=== PATIENT | male | born 1930 | race Caucasian/White ===

== ENCOUNTER 2017-01-10 02:10 | Inpatient (IN) ==
[2017-01-10] MEDS ORDERED: Acetaminophen 325 MG TABLET PO PRN (04:42)
[2017-01-10] MEDS ORDERED: *HR* Promethazine 25 MG/ML VIAL IVP PRN (04:42)
[2017-01-10] MEDS ORDERED: Naloxone 0.4 MG/ML INJ IVP PRN (04:42)
[2017-01-10] MEDS ORDERED: Dextrose Gel 15 GM PO PRN ×2 (04:45)
[2017-01-10] MEDS ORDERED: *HR* Dextrose 50 % in Water (Syg) 50 ML SYRINGE IVP PRN (04:45)
[2017-01-10] MEDS ORDERED: D5% in Water 1,000 ML IVC PRN (04:45)
[2017-01-10] MEDS: Insulin LISPRO 300 UNITS/3 ML VIAL SQ SCH ×3 (05:25→17:35)
[2017-01-10] MEDS: *HR* Heparin 5,000 UNIT/ML VIAL SQ SCH ×2 (05:25→17:37)
--- NOTE | 2017-01-10 05:36 | Internal Med History&Physical ---
<LanKd peralta Rene - Last Filed: 01/10/17 05:33> Date of Encounter: 01/10/17 Time of Encounter: 05:35 Assessment and Plan (1) Arrhythmia Current visit: Yes Status: Acute Asymptomatic, heart rate variable between 40s and 80s EKG is not clear, but there appears to be a sinus arrhythmia with first-degree heart block. Patient has no history of arrhythmia. No chest pain or inciting event. EKG is unremarkable for ischemia. We will check electrolytes, echocardiogram. Hold AV castro blocking agents. Consult cardiology. Qualifiers: Arrhythmia type: unspecified cardiac arrhythmia Qualified Code(s): I49.9 - Cardiac arrhythmia, unspecified (2) Weakness Current visit: Yes Status: Acute Patient complains of lower extremity weakness however on exam there is no weakness appreciated. Patient was being worked up for CVA at the [facility] and had a CT scan that was negative. Patient does have some residual deficits from his old CVA but there are no new deficits. Weakness could be related to his arrhythmia, TIA, B12 deficiency. We will consult neuro for further workup. (3) CAD (coronary artery disease), [place] coronary artery Current visit: No Status: Chronic Stable at this time. No ischemic changes on EKG. We will trend troponins in light of new arrhythmia. Qualifiers: [place] vs. transplanted heart: [place] heart Associated angina: without angina Qualified Code(s): I25.10 - Atherosclerotic heart disease of [place] coronary artery without angina pectoris (4) Diabetes mellitus Current visit: No Status: Chronic Blood sugar 160 on presentation. We will hold home antidiabetic medications and institute moderate dose sliding scale. Qualifiers: Diabetes mellitus type: type 2 Diabetes mellitus complication status: with unspecified complications Diabetes mellitus terminal operations supervisor insulin use: without terminal operations supervisor use Qualified Code(s): E11.8 - Type 2 diabetes mellitus with unspecified complications (5) CKD (chronic kidney disease) stage 3, GFR 30-59 ml/min Current visit: No Status: Chronic Creatinine appears stable. We will continue to monitor urine output and serum creatinine. (6) DVT prophylaxis Current visit: No Status: Acute Heparin 5000 units subcutaneous twice a day Internal Medicine - H&P: HPI Chief complaint: Weakness Admitted From: Hospital to Hospital Transfer Plans for Post Hospital Care: Home History of present illness: Mr. Ibrahim is a 86 year old male with history of coronary artery disease, type 2 diabetes, CVA presents with arrhythmia. [facility] He was admitted there due to concerns for CVA. The patient had hypertension and was given IV labetalol and then by mouth clonidine 2 and developed an abnormal heart rhythm so he was transferred here. At the time of my exam the patient had no complaints. He did state that he felt somewhat weak in his lower extremities but otherwise stated that he feels normal. He does have some residual facial droop and slurred speech that the states developed after his previous stroke approximately a month ago and is unchanged from that time. He denies fever, chills, chest pain, syncope, lightheadedness, palpitations, shortness of breath , abdominal pain, nausea, vomiting, diarrhea, dysuria, lower extremity swelling , falls. Past Med Surg Social Fam HX - Past Medical History Medical history: arthritis, cardiomyopathy, COPD, coronary artery disease, diabetes, GI bleed, kidney stones, myocardial infarction, renal disease, other Psychiatric history: no psych history - Past Surgical History Surgical History: coronary bypass (CABG) - Social History Smoking Status: Former smoker Smokeless Tobacco Status: No Alcohol use: none Drug use: none - Additional Family History Additional family history: Patient denies any significant family history Internal Medicine - H&P: Meds glipiZIDE [Glipizide] 5 mg PO DAILY 12/06/15 [History] Aspirin [Lo-Dose Aspirin EC] 81 mg PO DAILY 01/10/17 [History] Polyvinyl Alcohol/Povidone/Pf [Refresh Classic Eye Drops] 1 drop BOTH EYES QID 01/10/17 [History] amLODIPine [Norvasc] 5 mg PO DAILY 01/10/17 [History] Allergies No Known Allergies Allergy (Verified 11/29/15 11:10) All Systems PM: A 10-system review of systems was performed and is negative for pertinent findings except as documented above in the HPI. - Constitutional Vitals: Temp Pulse Resp BP Pulse Ox 97.8 F 50 18 160/84 93 01/10/17 04:00 01/10/17 05:00 01/10/17 05:00 01/10/17 05:00 01/10/17 05:00 General appearance: Present: A&O X 3, pleasant, no acute distress - Head Head exam: Present: atraumatic, normal inspection, normocephalic - Eye Eye exam: Present: EOMI, PERRL - ENT ENT exam: Present: mucous membranes dry - Neck Neck exam general surgery: Present: supple. Absent: tenderness - Respiratory Respiratory exam: Present: CTAB. Absent: rales, rhonchi, wheezes - Cardiovascular Cardiovascular exam: Present: irregular rhythm. Absent: gallop, rubs, systolic murmur, tachycardia - GI/Abdominal GI/Abdominal exam: Present: normal bowel sounds, soft. Absent: distended, tenderness - Extremities Exam Extremities exam: Present: warm, radial pulses palpable and symetrical. Absent : pedal edema, tenderness - Neurological Exam Neurological exam: Present: alert, CN II-XII intact, oriented X3, reflexes normal, no focal deficits, strengths equal and symetr throughout, facial droop ( Mild, unchanged from previous stroke), speech deficit (Mild, unchanged from previous stroke). Absent: motor sensory deficit - Skin Skin exam: Present: dry, intact, warm Internal Med - H&P Results - EKG Data -: EKG Interpreted by Myself - EKG Data EKG comments: 01/10/17 05:42 Difficult to interpret but there appears to be sinus arrhythmia with first- degree heart block <Pilo Argueta R - Last Filed: 01/10/17 23:59> Date of Encounter: 01/10/17 Internal Medicine - H&P: HPI History of present illness: Mr. Ibrahim is a 86 year old male All Systems PM: A 10-system review of systems was performed and is negative for pertinent findings except as documented above in the HPI. - Constitutional Vitals: Temp Pulse Resp BP Pulse Ox 98.4 F 93 17 125/52 86 01/10/17 23:30 01/10/17 23:43 01/10/17 23:30 01/10/17 23:30 01/10/17 23:30 Internal Med - H&P Results - Labs CBC & Chem 7: 01/10/17 05:50 01/10/17 05:50 Labs: Short CBC 01/10/17 Range/Units 05:50 WBC 8.9 (4.3-11.1) K/mcL Hgb 14.0 (12.9-16.9) g/dL Hct 42.0 (37.5-50.1) % Plt Count 211 (140-400) K/mcL Neutrophils # 6.0 (1.6-8.9) K/mcL BMP 01/10/17 05:50 Sodium 140 Potassium 4.3 Chloride 106 Carbon Dioxide 26 BUN 13 Creatinine 1.22 Glucose 186 H Calcium 9.2 Cardiac Enzymes 01/10/17 01/10/17 01/10/17 Range/Units 05:50 11:59 18:47 Troponin I 0.13 H* 0.10 H* 0.06 H* (0-0.03) ng/mL Urine 01/10/17 Range/Units 10:30 Urine Color Yellow (Yellow) Urine Clarity Clear (Clear) Urine pH 7.0 (5.0-8.0) pH Units Ur Specific [place] 1.014 (1.010-1.025) Urine Protein Negative (Neg-Trace) mg/dL Urine Glucose (UA) Normal (Normal) mg/dL - Impressions ITS Impressions Brain MRI 01/10/17 10:11 IMPRESSION: Acute left pontine infarct. Mild generalized volume loss and mild chronic microvascular ischemic disease. The findings were sent to the Radiology Results Communication [facility] at 5:01 pm on 01/10/2017to be communicated to a licensed caregiver. D/ / 01/10/2017 17:22:09 Kendrick Silva MD / ashley Interpreting Provider: Kendrick Silva MD - Attending Attestation I performed history and physical examination of the patient and discussed management with the Resident. I reviewed the Residents note and agree with documented findings and plan of care 89 Y/M with h/o CAD s/p CABG, recent CVA presents with b/l Lower extremity weakness. Was apparently hypertensive in the ER at [facility] and was given labetolol and clonidine. He was noted to have abnormal heart rhythm [facility] 2[facility] and transferred for further care. O/E: cardiac: RRR; lungs clear to auscultation. Not in acute distress. EKG Personally reviewed shows 1 degree AV block, RBBB, sinus arrhythmia. A/P: Arrhythmia: possibly related to beta-dora effect from labetolol. Check TSH. Lower extremity weakness: Neurol consult; MRI brain
[2017-01-10 06:03] LABS: Basophils # 0.1 K/mcL (0.0-0.2); Basophils % 0.7 %; Eosinophils # 0.1 K/mcL (0.0-0.6); Eosinophils % 1.6 %; Immature Granulocytes % 0.3 % (0-4); Lymphocytes % 22.6 %; Mean Corpuscular HGB Conc 33.3 g/dL (31.6-35.5); Mean Corpuscular Hemoglobin 29.5 pg (28.0-33.3); Mean Corpuscular Volume 88.6 fL (83.0-100.0); Monocytes # 0.6 K/mcL (0.0-1.3); Platelet Count 211 K/mcL (140-400); Prothrombin Time 10.6 Seconds (9.4-12.1); Red Blood Count 4.74 M/mcL (4.19-5.50); Segmented Neutrophils % 67.8 %
[2017-01-10 06:12] LABS: BUN/Creatinine Ratio 11 (6-26); Blood Urea Nitrogen 13 mg/dL (8-26); Calcium 9.2 mg/dL (8.6-10.8); Carbon Dioxide 26 mEq/L (19-29); Chloride 106 mEq/L (98-109); Glucose 186 mg/dL (70-99); Magnesium 1.6 mg/dL (1.6-2.6); Osmolality,Calculated 295 (280-300); Phosphorous 3.8 mg/dL (2.3-4.7); Potassium 4.3 mEq/L (3.5-4.5); Sodium 140 mEq/L (136-145); eGFR For African Americans > 60 (> 60); eGFR For Non-African Americans 57 (> 60)
[2017-01-10 06:34] LABS: Thyroid Stimulating Hormone 3.359 mcIU/mL (0.350-4.840)
--- NOTE | 2017-01-10 09:11 | Internal Med Progress Note ---
Date of Encounter: 01/10/17 Time of Encounter: 09:09 - Assessment and plan (1) Arrhythmia Current Visit: Yes Status: Acute Assessment and plan: Patient sent from [place] for possible second-degree AV block. Review of EKGs show sinus arrhythmia, right bundle branch block and first-degree AV block. Cardiology consult appreciated, recommend continued telemetry monitoring, avoid negative chronotropic agents. Echocardiogram reviewed, shows preserved ejection fraction, mild concentrate left ventricular hypertrophy, mild left- ventricular diastolic dysfunction, hypokinesis of apical septum. Second troponin was slightly elevated at 0.13, repeat troponin 0.10. Continue to trend. Qualifiers: Arrhythmia type: unspecified cardiac arrhythmia Qualified Code(s): I49.9 - Cardiac arrhythmia, unspecified (2) Weakness Current Visit: Yes Status: Acute Assessment and plan: Unclear etiology. Neurology consult appreciated, recommend completing stroke workup. Follow-up MRI brain and carotid Dopplers. CT head done in the emergency room showed no acute abnormality. Patient also had a previous stroke 6 months ago with residual slurred speech and facial droop according to him. Unclear if he is having a new event with labile blood pressures and cardiac arrhythmias. Monitor closely. Physical and occupational therapy evaluation. Arterial studies show moderate occlusive disease in right lower extremity and mild disease in left lower extremity. (3) CAD (coronary artery disease) Current Visit: Yes Status: Chronic Assessment and plan: Continue telemetry monitoring and trend troponins. Continue aspirin and statin and avoid beta blockers at this time. Qualifiers: Coronary Disease-Associated Artery/Lesion type: bypass graft [place] vs. transplanted heart: [place] heart Associated angina: without angina Qualified Code(s): I25.810 - Atherosclerosis of coronary artery bypass graft(s) without angina pectoris (4) Essential hypertension Current Visit: Yes Status: Chronic Assessment and plan: Blood pressure noted to be elevated. Hold beta dora. Has been started on Norvasc, will use when necessary IV hydralazine for uncontrolled hypertension. (5) Diabetes mellitus Current Visit: Yes Status: Chronic Assessment and plan: Accu-Chek blood glucose monitoring with sliding scale insulin. Diabetic diet. Check hemoglobin A1c. Qualifiers: Diabetes mellitus type: type 2 Diabetes mellitus complication status: with unspecified complications Diabetes mellitus german tutor insulin use: without german tutor use Qualified Code(s): E11.8 - Type 2 diabetes mellitus with unspecified complications - Subjective Interval history: Reports leg weakness; no chest pain, dyspnea, abdominal pain, dizziness, nausea , emesis; had a stroke 6 months ago and has residual facial droop and slurred speech; - Constitutional Vitals: Temp Pulse Resp BP Pulse Ox 97.9 F 47 18 172/64 97 01/10/17 07:36 01/10/17 09:00 01/10/17 09:00 01/10/17 09:00 01/10/17 09:00 General appearance: Present: A&O X 3, answers questions appropriately - Respiratory Respiratory exam: Present: CTAB. Absent: accessory muscle use, rales, rhonchi, wheezes - Cardiovascular Cardiovascular exam: Present: bradycardia, irregular rhythm, +S1, +S2. Absent: diastolic murmur, gallop, rubs, systolic murmur - GI/Abdominal GI/Abdominal exam: Present: normal bowel sounds, soft, no peritoneal signs. Absent: distended, tenderness - Extremities Exam Extremities exam: Present: full ROM, warm, radial pulses palpable and symetrical. Absent: calf tenderness, cyanotic, pedal edema - Neurological Exam Neurological exam: Present: CN II-XII intact (right facial droop, slurred speech ), oriented X3, no focal deficits, strengths equal and symetr throughout (motor power 5/5 B/L LE). Absent: pronater drift, facial droop, speech deficit - Skin Skin exam: Present: dry, intact Internal Medicine: Result - Labs CBC & Chem 7: 01/10/17 05:50 01/10/17 05:50 Labs: Short CBC 01/10/17 Range/Units 05:50 WBC 8.9 (4.3-11.1) K/mcL Hgb 14.0 (12.9-16.9) g/dL Hct 42.0 (37.5-50.1) % Plt Count 211 (140-400) K/mcL Neutrophils # 6.0 (1.6-8.9) K/mcL BMP 01/10/17 05:50 Sodium 140 Potassium 4.3 Chloride 106 Carbon Dioxide 26 BUN 13 Creatinine 1.22 Glucose 186 H Calcium 9.2 Cardiac Enzymes 01/10/17 Range/Units 05:50 Troponin I 0.13 H* (0-0.03) ng/mL - ABG Interpretation ABG results: PT/INR, D-dimer PT 10.6 Seconds (9.4-12.1) 01/10/17 05:50 Consult Discharge Plan - Plan [facility]errals: [facility] [Primary Care Provider] -
--- NOTE | 2017-01-10 09:30 | Neurology - Consult Note ---
Date of Encounter: 01/10/17 Time of Encounter: 08:50 Assessment and Plan (1) Weakness Current Visit: Yes Status: Acute The patient's weakness appears to be more generalized in nature than having any focal deficits. CT of the head was read as negative at the [place]. He does continue to complain of some weakness and continues to have some slurring of his speech. Will investigate further with MRI of the head to rule out any new ischemic changes. The patient has a history of CAD with CABG after previous [place] with new arrhythmia. I believe the patient needs further cardiac workup for his weakness as well. Cardiology has already been consulted per the medicine team. Echocardiogram pending. The patient states that his symptoms have improved since their onset. Although he does still complain of feeling weak at this time. History of Present Illness Chief complaint: lower extremity weakness HPI: Mr. Ibrahim is a 86 year old male with PMH significant for arthritis, cardiomyopathy, COPD, CAD, DM, renal disease, [place] status post CABG, and CVA one month ago who presented to the [place] for bilateral lower extremity weakness. He was then transferred to [facility] after he was found to have a new dysrhythmia. Upon further questioning the patient states that his symptoms started when he initially woke up on Sunday. He states he was unable to really get up or get out of bed. He believes that if he was to try holding something in his arms, that his arms would have given out too. He admits to feeling weak all over at the onset of his symptoms, but he only really complained about the lower extremity weakness due to difficulty with standing. He was being worked up for stroke at the [place] and was found to have no acute changes on head CT, but was transferred before further workup occurred. The internal medicine team deferred having an MRI until the patient could be evaluated by neurology as they did not believe he was having an acute stroke. His EKG demonstrated sinus arrhythmia. Past Med Surg Social Fam HX - Past Medical History Medical history: arthritis, cardiomyopathy, COPD, coronary artery disease, diabetes, GI bleed, kidney stones, myocardial infarction, renal disease, other Psychiatric history: no psych history - Past Surgical History Surgical History: coronary bypass (CABG) - Social History Smoking Status: Former smoker Smokeless Tobacco Status: No Alcohol use: none Drug use: none Medications and Allergies Lisinopril [Zestril] 5 mg PO DAILY 12/06/15 [History] Metformin HCl [Glucophage] 1,000 mg PO BID 12/06/15 [History] glipiZIDE [Glipizide] 10 mg PO QPM 12/06/15 [History] Allergies No Known Allergies Allergy (Verified 11/29/15 11:10) All Systems: A 10-system review of systems was performed and is negative for pertinent findings except as documented above in the HPI. - Constitutional Constitutional ROS IM: weakness - Cardiovascular Cardiovascular ROS IM: no chest pain, no diaphoresis, no irregular heart rhythm , no palpitations, no rapid heart rate, no syncope - Respiratory Respiratory IM: no cough, no dyspnea - Gastrointestinal Gastrointestinal: no nausea, no vomiting - Neurological Neurological ROS: no dizziness, no focal weakness, no numbness, no sensory deficit Physical Examination - Vital Signs Vital Signs: Initial Vital Signs Temp Pulse Resp BP Pulse Ox 97.8 F 72 16 163/91 97 01/10/17 04:00 01/10/17 04:00 01/10/17 04:00 01/10/17 04:00 01/10/17 04:00 - Constitutional General appearance: comfortable - Neurologic Motor examination - right side: 5/5: deltoids, biceps, triceps, wrist flexion, wrist extension, manager hi, hip flexors, tibialis Anterior, quadriceps, toe extension (EHL), plantarflexion Motor examination - left side: 5/5: deltoids, biceps, triceps, wrist flexion, wrist extension, hip flexors, manager hi, quadriceps, tibialis Anterior, toe extension (EHL), plantarflexion Detailed sensory examination: intact Reflexes: Biceps: 0 (unable to elicit any reflexes), Triceps: 0, Brachioradialis : 0, Patella: 0, Achilles: 0 Mental Status Examination: awake, alert, oriented to person, oriented to place, oriented to time, follows commands appropriately, answers questions appropriately, no agnosia, no aphasia, no aproxia, makes eye contact Cranial nerve examination: PERRL, EOMI, visual mondragon intact, corneal reflexes brisk symmetrically, sensory to face intact, mastication intact, no facial asymmetry is present, no dysarthria, hearing is intact symmetrically, soft palate elevates bilaterally upon phonation, flexes SCM and trapezius muscles symmetrically with full power, tongue protrudes midline, no atrophy or facial fasiculations present Cerebellar examination: no dysmetria, performs finger to nose and heel to hercules symmetrically without ataxia, no difficulty with rapid alternating movements Results - Laboratory Findings CBC and BMP: 01/10/17 05:50 01/10/17 05:50 Abnormal lab findings: Abnormal lab results Est GFR (Non-Af Amer) 57 (> 60) L 01/10/17 05:50 Glucose 186 mg/dL (70-99) H 01/10/17 05:50 POC Glucose 162 (58-89) H 01/10/17 04:00 Troponin I 0.13 ng/mL (0-0.03) H* 01/10/17 05:50 Consult Discharge Plan - Plan [facility]errals: [facility] [Primary Care Provider] -
--- NOTE | 2017-01-10 09:53 | Cardiology Consult Note ---
Date of Encounter: 01/10/17 Time of Encounter: 09:00 Assessment and Plan (1) Bradycardia Current Visit: Yes Status: Acute Transferred from the [place] due to concerns of [place] type II. Asymptomatic--denies dizziness, dyspnea, syncope, or pre-syncope. BP stable. Reviewed telemetry and ECG's, appears to be SR with blocked PACs, with RBBB. No indication for PPM today, will continue to follow and monitor telemetry for high grade AV block. Avoid negative chronotropic agents. Will further discuss and review ECG's with Dr. Rangel. (2) Hx of CABG Current Visit: Yes Status: Chronic Hx of CABG in 2008. Troponin 0.04, 0.13 in the setting of severely elevated BP and mild REBEL (SCr. 1.47 at [place]). Blood pressure remains poorly controlled, will restart amlodipine ([facility] per [facility]). Echo pending. Denies chest pain or discomfort. (3) Essential hypertension Current Visit: Yes Status: Chronic Poorly controlled, plan as stated above. Discussion w patient/family: The assessment and plan as outlined above was discussed with the patient and/or family members who expressed understanding and agreement. All questions were answered. Thank you for involving us in the care of your patient. Please call with any questions. The patient will be discussed and reviewed with Dr. Rangel; changes to be made accordingly. History of Present Illness Consult date: 01/10/17 Requesting physician: Kd Herrera Consult reason: Abnormal ECG Chief complaint: LE weakness History of present illness: Mr. Ibrahim is a 86 year old male with PMH significant for CAD s/p CABG (2008), HTN, HLD, CVA (), DMII, GERD, hx of GI bleed (December 2015) and BPH who presented to the [place] after acute onset of bilateral lower extremity weakness that started on Sunday. Associated symptoms including difficulty speaking--he states symptoms were similar to CVA in September. Upon arrival to [place], he blood pressure had been uncontrolled requiring IV labetalol and clonodine. He denies chest pain or discomfort, dyspnea, dizziness, lightheadedness or syncope. He was transferred to [facility] due to abnormal ECG, felt to be Mob[place] II. [facility] head: no evidence of intracranial hemorrhage or mass; stable cerebral atrophy, periventricular white matter disease that likely represents secondary demyelinization from small vessel ischemic disease, and a chronic left lentiform nuclear lacunar infarct. 01/09/17 10:03 AM: troponin 0.04 Past Med Surg Social Fam HX - Past Medical History Medical history: arthritis, COPD, coronary artery disease, diabetes, GERD, GI bleed, hyperlipidemia, hypertension, kidney stones, myocardial infarction, renal disease, other (BPH) Psychiatric history: no psych history - Past Surgical History Surgical History: coronary bypass (CABG) - Social History Smoking Status: Former smoker Smokeless Tobacco Status: No Alcohol use: none Drug use: none Current living situation: Home - Independent, With Family Medications and Allergies glipiZIDE [Glipizide] 5 mg PO DAILY 12/06/15 [History] Aspirin [Lo-Dose Aspirin EC] 81 mg PO DAILY 01/10/17 [History] Polyvinyl Alcohol/Povidone/Pf [Refresh Classic Eye Drops] 1 drop BOTH EYES QID 01/10/17 [History] amLODIPine [Norvasc] 5 mg PO DAILY 01/10/17 [History] Allergies No Known Allergies Allergy (Verified 11/29/15 11:10) All Systems Review: A 10-system review of systems was performed and is negative for pertinent findings except as documented above in the HPI. - Cardiovascular Cardiovascular: as per HPI Physical Examination Vital Signs, Last 4 Hours Temp Pulse Resp BP Pulse Ox 01/10/17 09:00 47 18 172/64 97 01/10/17 07:36 97.9 F 01/10/17 07:24 44 01/10/17 07:18 44 16 127/52 96 01/10/17 06:00 60 21 141/69 95 General: Conversant, No Apparent Distress HEENT: Atraumatic, Normocephaly Cardiac: Reg Rate and Rhythm, Normal S1 and S2 Lungs: Normal Breath Sounds Neuro: Alert and responsive, No focal deficits noted Abdomen: Soft Skin: No rashes noted on visualized skin Musculoskeletal: No Chest Wall Tenderness Extremities: No Edema, Normal Pulses Results 01/10/17 05:50 01/10/17 05:50 Lab Results 01/10/17 01/10/17 01/10/17 05:50 05:50 05:50 WBC 8.9 Hgb 14.0 Hct 42.0 Plt Count 211 INR 1.0 Sodium 140 Potassium 4.3 Chloride 106 Carbon Dioxide 26 BUN 13 Creatinine 1.22 Glucose 186 H Calcium 9.2 Magnesium 1.6 Troponin I TSH 3.359 01/10/17 05:50 WBC Hgb Hct Plt Count INR Sodium Potassium Chloride Carbon Dioxide BUN Creatinine Glucose Calcium Magnesium Troponin I 0.13 H* TSH Active Medications Acetaminophen (Tylenol) 650 mg PO Q6HR PRN PRN Reason: Mild Pain (1-3) Stop: 07/12/17 04:43 Dextrose/Water (Dextrose 50% (Syg)) 25 ml IVP AD PRN PRN Reason: Hypoglycemia Stop: 07/12/17 04:46 Glucagon (Glucagen) 1 mg IM ONCE PRN PRN Reason: Hypoglycemia Stop: 07/12/17 04:46 Glucose (Gluctose) 15 gm PO ONCE PRN PRN Reason: Hypoglycemia Stop: 07/12/17 04:46 Glucose (Gluctose) 30 gm PO ONCE PRN PRN Reason: Hypoglycemia Stop: 07/12/17 04:46 Heparin Sodium (Porcine) (Heparin) 5,000 unit SQ Q12HCO [facility] Stop: 07/12/17 06:01 Last Admin: 01/10/17 05:25 Dose: 5,000 unit Hydralazine HCl (Hydralazine) 10 mg IVP Q6HR PRN PRN Reason: Hypertension Stop: 07/12/17 05:56 Last Admin: 01/10/17 09:37 Dose: 10 mg Dextrose (Dextrose 5%) 1,000 mls @ 100 mls/hr IVC .Q10H PRN PRN Reason: HYPOGLYCEMIA Stop: 07/12/17 04:46 Insulin Human Lispro (Humalog) 0 units SQ Q6HR [facility] PRN Reason: Protocol Stop: 07/12/17 06:01 Last Admin: 01/10/17 05:25 Dose: 2 units Naloxone HCl (Narcan) 0.4 mg IVP Q2MIN PRN PRN Reason: Opioid Reversal Stop: 07/12/17 04:43 Promethazine HCl (Phenergan) 12.5 mg IVP Q6HR PRN PRN Reason: Nausea And Vomiting Stop: 07/12/17 04:43 - Imaging and Cardiology Echo: pending Other Results: 12 hour tele: avg HR=62. - EKG Interpretation EKG results cardiology: personally reviewed Consult Discharge Plan - Plan [facility]errals: [facility] [Primary Care Provider] -
[2017-01-10 11:03] LABS: Bilirubin,Urine Negative (Negative); Blood,Urine Negative (Negative); Clarity,Urine Clear (Clear); Color,Urine Yellow (Yellow); Glucose,Urine (UA) Normal (Normal); Ketones,Urine Negative (Negative); Leukocyte Esterase,Urine Negative (Negative); Nitrite,Urine Negative (Negative); Protein,Urine Negative (Neg-Trace); Specific Gravity,Urine 1.014 (1.010-1.025); Urobilinogen,Urine Normal (Normal)
[2017-01-10] MEDS: amLODIPine 5 MG TABLET PO SCH (12:10)
--- NOTE | 2017-01-10 14:59 | Arterial Study Report ---
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 2) Right Ankle Brachial Index demonstrates moderately occlusive disease. 1) Left lower extremity waveform demonstrates mildly diminished hemodynamics. 2) Left Ankle Brachial Index is normal. Recommendations: Test completed on 01/10/2017 at 2:30:00 pm. Findings LE Arterial Physiologic Exam: Segmental Pressures: Right: The right posterior tibial pressure is 138 mmHg with an index of 0.74. The right dorsalis pedis pressure is 135 mmHg with an index of 0.72. Left: The left posterior tibial pressure is 184 mmHg with an index of 0.98. The left dorsalis pedis pressure is 178 mmHg with an index of 0.95. PVR: Right: The PVR waveforms are mildly diminished in the right ankle. Left: The PVR waveforms are mildly diminished in the left ankle. Prior Study: No prior study available for comparison. Segmental Pressures Side Location Pressure Index Result Right Posterior Tibial 138 0.74 Moderately Diminished Right Dorsalis Pedis 135 0.72 Moderately Diminished Left Posterior Tibial 184 0.98 Normal Left Dorsalis Pedis 178 0.95 Normal Ankle Brachial Index Right Systolic Diastolic SYLWIA Brachial 180 0.74 Dorsalis Pedis 135 0.72 Posterior Tibial 138 0.74 Left Systolic Diastolic SYLWIA Brachial 187 0.98 Dorsalis Pedis 178 0.95 Posterior Tibial 184 0.98 Updated by Rusty Cantu MD on 01/10/2017 2:53:44 PM with Status of Final electronically signed on 01/10/2017 2:54:00 PM with status of Final
--- NOTE | 2017-01-10 15:54 | Electrocardiograph Report ---
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
[2017-01-10] MEDS: Aspirin Enteric Coated 81 MG Tablet PO SCH (17:47)
--- NOTE | 2017-01-10 18:44 | Neurology Progress Note ---
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 Agree with addition of plavix onto aspirin to secondary stroke prevention. Will obtain echocardiography and carotid artery duplex if not already done. Continue statin therapy. Speech therapy, and PT/OT Qualifiers: CVA mechanism: occlusion Precerebral and cerebral artery: unspecified precerebral artery Qualified Code(s): I63.20 - Cerebral infarction due to unspecified occlusion or stenosis of unspecified precerebral arteries Subjective Principal diagnosis: CVA Interval history: Patient seen and examined. Patient is currently out of ICU. MRI of brain showed acute left pontine infarct which explains his slurred speech. Objective - Constitutional Vitals: Temp Pulse Resp BP Pulse Ox 98.0 F 77 20 161/77 95 01/10/17 14:58 01/10/17 15:00 01/10/17 15:00 01/10/17 15:00 01/10/17 15:00 - Neurological Exam Sensorimotor examination: Present: intact Motor Examination: Present: grossly full strength in all extremities Motor examination - right side: 5/5: triceps, wrist flexion, wrist extension, commercial marketing specialist, hip flexors, tibialis Anterior, quadriceps, toe extension (EHL), plantarflexion Motor examination - left side: 5/5: deltoids, biceps, triceps, wrist flexion, wrist extension, hip flexors, commercial marketing specialist, quadriceps, tibialis Anterior, toe extension (EHL), plantarflexion Sensation intact: Present: intact Posture: Present: other (None) Reflex and gait examination: other (Gait not assessed) Reflexes: Biceps: 1+, Triceps: 1+, Brachioradialis: 1+, Patella: 1+, Achilles: 1 + Mental Status Examination: Present: awake (Patient is dysarthric, language content is intact), alert, oriented to person, oriented to place, oriented to time, follows commands appropriately, answers questions appropriately, no agnosia, no aphasia, no aproxia, lucid Cranial nerve examination: Present: PERRL, EOMI, visual mondragon intact, corneal reflexes brisk symmetrically, sensory to face intact, mastication intact, no facial asymmetry is present, no dysarthria, hearing is intact symmetrically, soft palate elevates bilaterally upon phonation, flexes SCM and trapezius muscles symmetrically with full power, tongue protrudes midline, no atrophy or facial fasiculations present Cerebellar examination: Present: no dysmetria, performs finger to nose and heel to hercules symmetrically without ataxia, no difficulty with rapid alternating movements Results - Laboratory Findings CBC and BMP: 01/10/17 05:50 01/10/17 05:50 Abnormal lab findings: Abnormal lab results Est GFR (Non-Af Amer) 57 (> 60) L 01/10/17 05:50 Glucose 186 mg/dL (70-99) H 01/10/17 05:50 POC Glucose 139 (58-89) H 01/10/17 12:10 Troponin I 0.10 ng/mL (0-0.03) H* 01/10/17 11:59 Consult Discharge Plan - Plan [facility]: [facility] Care Provider[facility] -
[2017-01-11 05:44] LABS: Hemoglobin A1C 8.1 %
[2017-01-11 05:57] LABS: BUN/Creatinine Ratio 10 (6-26); Blood Urea Nitrogen 14 mg/dL (8-26); Calcium 9.5 mg/dL (8.6-10.8); Carbon Dioxide 24 mEq/L (19-29); Chloride 106 mEq/L (98-109); Chol/HDL Ratio 5.7 (0-4.9); Cholesterol 177 mg/dL (< 200); Glucose 162 mg/dL (70-99); HDL Cholesterol 31 mg/dL (40-59); LDL Cholesterol,Calculated 101 mg/dL (0-99); Osmolality,Calculated 288 (280-300); Potassium 3.9 mEq/L (3.5-4.5); Sodium 137 mEq/L (136-145); Triglycerides 223 mg/dL (< 150); eGFR For African Americans > 60 (> 60); eGFR For Non-African Americans 51 (> 60)
[2017-01-11] MEDS: *HR* Heparin 5,000 UNIT/ML VIAL SQ SCH ×2 (06:14→17:56)
[2017-01-11] MEDS: amLODIPine 5 MG TABLET PO SCH (08:04)
[2017-01-11] MEDS: Aspirin Enteric Coated 81 MG Tablet PO SCH (08:04)
[2017-01-11] MEDS: Insulin LISPRO 300 UNITS/3 ML VIAL SQ SCH ×3 (08:04→16:15)
--- NOTE | 2017-01-11 09:34 | Neurology Progress Note ---
Date of Encounter: 01/11/17 Time of Encounter: 09:00 Assessment and Plan (1) CVA (cerebral vascular accident) Current Visit: Yes Status: Acute The patient's dysarthria remains unchanged from yesterday. MRI demonstrated an acute left pontine lacunar infarct. Carotid duplex US ordered. Continue ASA and Plavix. His lower extremity weakness likely multifactorial with component of PVD. Lower extremity arterial physiologic study demonstrated: RLE waveform moderately diminished hemodynamics and right SYLWIA demonstrates moderate occlusive disease. LLE waveform has mildly diminished hemodynamis and normal SYLWIA. Echocardiogram demonstrated: LVEF of 60-65% with hypokinesis of apical septum, mild concentric LVH, and mild LV diastoic dysfunction. Follow recommendations of PT/OT. Qualifiers: CVA mechanism: occlusion Precerebral and cerebral artery: unspecified precerebral artery Qualified Code(s): I63.20 - Cerebral infarction due to unspecified occlusion or stenosis of unspecified precerebral arteries Subjective Principal diagnosis: CVA Interval history: The patient remains alert and oriented with no acute neurologic changes since yesterday. He is currently asking when he will be able to go home. He reports that he feels better today than yesterday in terms of his feelings of weakness as well as his speech. His MRI yesterday did demonstrate an acute left pontine lacunar infarct. Objective - Constitutional Vitals: Temp Pulse Resp BP Pulse Ox 97.9 F 83 20 180/89 95 01/11/17 08:00 01/11/17 08:00 01/11/17 08:00 01/11/17 08:00 01/11/17 08:00 General appearance: Present: A&O X 3, pleasant, no acute distress - Neurological Exam Sensorimotor examination: Present: intact Motor Examination: Present: grossly full strength in all extremities Motor examination - right side: 5/5: deltoids, biceps, triceps, wrist flexion, wrist extension, real estate subagent, hip flexors, tibialis Anterior, quadriceps, toe extension (EHL), plantarflexion Motor examination - left side: 5/5: deltoids, biceps, triceps, wrist flexion, wrist extension, hip flexors, real estate subagent, quadriceps, tibialis Anterior, toe extension (EHL), plantarflexion Sensation intact: Present: intact Reflex and gait examination: other (Gait not assessed) Mental Status Examination: Present: awake (Patient is dysarthric, language content is intact), alert, oriented to person, oriented to place, oriented to time, follows commands appropriately, answers questions appropriately, no agnosia, no aphasia, no aproxia, lucid Cranial nerve examination: Present: PERRL, EOMI, visual mondragon intact, corneal reflexes brisk symmetrically, sensory to face intact, mastication intact, no facial asymmetry is present, no dysarthria, hearing is intact symmetrically, soft palate elevates bilaterally upon phonation, flexes SCM and trapezius muscles symmetrically with full power, tongue protrudes midline, no atrophy or facial fasiculations present Cerebellar examination: Present: no dysmetria, performs finger to nose and heel to hercules symmetrically without ataxia, no difficulty with rapid alternating movements Results - Laboratory Findings CBC and BMP: 01/10/17 05:50 01/11/17 05:06 Abnormal lab findings: Abnormal lab results Creatinine 1.34 mg/dL (0.72-1.25) H 01/11/17 05:06 Est GFR (Non-Af Amer) 51 (> 60) L 01/11/17 05:06 Glucose 162 mg/dL (70-99) H 01/11/17 05:06 POC Glucose 160 (58-89) H 01/10/17 20:28 Hemoglobin A1c 8.1 % (-5.6) H 01/11/17 05:06 Troponin I 0.06 ng/mL (0-0.03) H* 01/10/17 18:47 Triglycerides 223 mg/dL (< 150) H 01/11/17 05:06 LDL Cholesterol, Calc 101 mg/dL (0-99) H 01/11/17 05:06 VLDL Cholesterol, Calc 45 mg/dL (< 31) H 01/11/17 05:06 HDL Cholesterol 31 mg/dL (40-59) L 01/11/17 05:06 Cholesterol/HDL Ratio 5.7 (0-4.9) H 01/11/17 05:06 Consult Discharge Plan - Plan [facility]errals: [facility] [Primary Care Provider] -
--- NOTE | 2017-01-11 10:14 | Cardiology Progress Note ---
Date of Encounter: 01/11/17 Time of Encounter: 10:00 Assessment and Plan (1) Bradycardia Current Visit: Yes Status: Acute Transferred from the [place] due to concerns of [place] type II in the setting of acute CVA. Asymptomatic--denies dizziness, dyspnea, syncope, or pre-syncope. BP stable. 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 Min HR=low 40's upon presentation. No indication for PPM. Avoid negative chronotropic agents. Telemetry reviewed; avg HR overnight= 79, SR with blocked PACs. Recommend outpatient follow-up with [facility]. (2) Hx of CABG Current Visit: Yes Status: Chronic Hx of CABG in 2008. Mild troponin elevation, 0.04, 0.13, 0.10, 0.06 in the setting of severely elevated BP, acute CVA, and mild REBEL (SCr. 1.47 at [place]). No ischemic ECG changes, chest pain free. No indication for cardiac rehab. TTE: EF 60-65%, hypokinesis of the apical septum, mild cLVH, no significant valvular dysfunction. Continue medical therapy including asa, statin, and plavix. No betablocker due to bradycardia. (3) Essential hypertension Current Visit: Yes Status: Chronic Continues to be uncontrolled, will increase norvasc to 10 mg daily. (4) PVD (peripheral vascular disease) Current Visit: Yes Status: Chronic Bilateral lower extremity weakness improved. LE arterial study: RLE: moderately diminished hemodynamics, right SYLWIA moderate occlusive disease LLE: mildly diminished hemodynamics, left SYLWIA normal exam. Started on asa and plavix. Continue statin. Outpatient follow-up. Discussion w patient/family: The assessment and plan as outlined above was discussed with the patient and/or family members who expressed understanding and agreement. All questions were answered. Thank you for involving us in the care of your patient. Please call with any questions. The patient will be discussed and reviewed with Dr. Rangel; changes to be made accordingly. Subjective Principal diagnosis: CVA Interval history: Seen and examined. Patient up to bedside chair. No complaints overnight including dizziness, lightheadedness, weakness, or dyspnea. Denies chest pain or discomfort. States BLE weakness improving. Brain MRI 01/10/17: acute left pontine infarct--Neurology following, started on asa and plavix. Objective Vital Signs, Last 4 Hours Temp Pulse Resp BP Pulse Ox 01/11/17 09:30 97.9 F 83 20 180/89 95 01/11/17 08:00 97.9 F 83 20 180/89 95 01/11/17 07:39 97.9 F 83 20 180/89 General: Conversant, No Apparent Distress HEENT: Atraumatic, Normocephaly, Mucus Membranes Moist Neck: No JVD Cardiac: Reg Rate and Rhythm, Normal S1 and S2 Lungs: Normal Breath Sounds Neuro: Alert and responsive Abdomen: Soft Skin: No rashes noted on visualized skin Musculoskeletal: No Chest Wall Tenderness Extremities: No Edema, Normal Pulses Results 01/10/17 05:50 01/11/17 05:06 Lab Results 01/10/17 01/10/17 01/11/17 11:59 18:47 05:06 Sodium 137 Potassium 3.9 Chloride 106 Carbon Dioxide 24 BUN 14 Creatinine 1.34 H Glucose 162 H Calcium 9.5 Troponin I 0.10 H* 0.06 H* Active Medications Acetaminophen (Tylenol) 650 mg PO Q6HR PRN PRN Reason: Mild Pain (1-3) Stop: 07/12/17 04:43 Amlodipine Besylate (Norvasc) 5 mg PO DAILY [facility] PRN Reason: Protocol Stop: 07/12/17 11:31 Last Admin: 01/11/17 08:04 Dose: 5 mg Aspirin (Aspirin Ec) 81 mg PO DAILY [facility] Stop: 07/12/17 17:31 Last Admin: 01/11/17 08:04 Dose: 81 mg Atorvastatin Calcium (Lipitor) 40 mg PO HS [facility] Stop: 07/12/17 21:01 Last Admin: 01/10/17 20:20 Dose: 40 mg Clopidogrel Bisulfate (Plavix) 75 mg PO DAILY [facility] Stop: 07/12/17 17:31 Last Admin: 01/11/17 08:04 Dose: 75 mg Dextrose/Water (Dextrose 50% (Syg)) 25 ml IVP AD PRN PRN Reason: Hypoglycemia Stop: 07/12/17 04:46 Glucagon (Glucagen) 1 mg IM ONCE PRN PRN Reason: Hypoglycemia Stop: 07/12/17 04:46 Glucose (Gluctose) 15 gm PO ONCE PRN PRN Reason: Hypoglycemia Stop: 07/12/17 04:46 Glucose (Gluctose) 30 gm PO ONCE PRN PRN Reason: Hypoglycemia Stop: 07/12/17 04:46 Heparin Sodium (Porcine) (Heparin) 5,000 unit SQ Q12HCO [facility] Stop: 07/12/17 06:01 Last Admin: 01/11/17 06:14 Dose: 5,000 unit Hydralazine HCl (Hydralazine) 10 mg IVP Q6HR PRN PRN Reason: Hypertension Stop: 07/12/17 05:56 Last Admin: 01/10/17 09:37 Dose: 10 mg Dextrose (Dextrose 5%) 1,000 mls @ 100 mls/hr IVC .Q10H PRN PRN Reason: HYPOGLYCEMIA Stop: 07/12/17 04:46 Insulin Human Lispro (Humalog) 0 units SQ TIDAC [facility] PRN Reason: Protocol Stop: 07/13/17 07:31 Last Admin: 01/11/17 08:04 Dose: 2 units Insulin Human Lispro (Humalog) 0 units SQ HS [facility] PRN Reason: Protocol Stop: 07/13/17 21:01 Naloxone HCl (Narcan) 0.4 mg IVP Q2MIN PRN PRN Reason: Opioid Reversal Stop: 07/12/17 04:43 Promethazine HCl (Phenergan) 12.5 mg IVP Q6HR PRN PRN Reason: Nausea And Vomiting Stop: 07/12/17 04:43 - Imaging and Cardiology Echo: report reviewed Other Results: Tele: avg HR=79 SR. - EKG Interpretation EKG results cardiology: personally reviewed Consult Discharge Plan - Plan [facility]errals: [facility] [Primary Care Provider] -
[2017-01-11] MEDS ORDERED: amLODIPine 5 MG TABLET PO ONE (10:30)
--- NOTE | 2017-01-11 15:54 | Internal Med Progress Note ---
Date of Encounter: 01/11/17 Time of Encounter: 15:00 - Assessment and plan (1) CVA (cerebral vascular accident) Current Visit: Yes Status: Acute Assessment and plan: Neurology consult and follow-up appreciated, agree with current management. MRI brain reviewed, shows new left pontine infarct. Pending bilateral carotid Doppler. Patient's fluctuating blood pressure and cardiac arrhythmias could be explained by pontine infarct per neurology. Continue aspirin and Plavix and statin. Aggressive risk factor modification- noted to have elevated TGs, LDL- 101, has been started on statin. Physical therapy evaluation noted, recommend inpatient rehabilitation, to which the patient is agreeable. Case has been discussed with patient's provider at the [place], , and updated about his new diagnosis and ongoing treatments. He may be transferred to [place] inpatient rehabilitation in a.m. Qualifiers: CVA mechanism: occlusion Precerebral and cerebral artery: unspecified precerebral artery Qualified Code(s): I63.20 - Cerebral infarction due to unspecified occlusion or stenosis of unspecified precerebral arteries (2) Arrhythmia Current Visit: Yes Status: Acute Assessment and plan: Review of EKGs show sinus arrhythmia, right bundle branch block and first- degree AV block. Cardiology follow-up appreciated, no indication for pacemaker placement at this time, recommend outpatient follow-up. Continue to hold negative chronotropic agents, bradycardia is currently improved. Qualifiers: Arrhythmia type: unspecified cardiac arrhythmia Qualified Code(s): I49.9 - Cardiac arrhythmia, unspecified (3) Weakness Current Visit: Yes Status: Acute (4) CAD (coronary artery disease) Current Visit: Yes Status: Chronic Assessment and plan: Continue telemetry monitoring. Continue aspirin and statin and avoid beta blockers at this time. Qualifiers: Coronary Disease-Associated Artery/Lesion type: bypass graft [place] vs. transplanted heart: [place] heart Associated angina: without angina Qualified Code(s): I25.810 - Atherosclerosis of coronary artery bypass graft(s) without angina pectoris (5) Essential hypertension Current Visit: Yes Status: Chronic Assessment and plan: Blood pressure noted to be fluctuating with episodes of high blood pressure. Continue low-dose Norvasc and hold beta dora. For neurology, blood pressure changes could be related to the new pontine infarct, will avoid aggressive blood pressure control at this time. (6) Diabetes mellitus Current Visit: Yes Status: Chronic Assessment and plan: Accu-Chek blood glucose monitoring with sliding scale insulin. Diabetic diet. HbA1C noted to be 8.1% Qualifiers: Diabetes mellitus type: type 2 Diabetes mellitus complication status: with unspecified complications Diabetes mellitus longterm insulin use: without longterm use Qualified Code(s): E11.8 - Type 2 diabetes mellitus with unspecified complications - Subjective Interval history: Reports feeling well today. Denies chest pain, shortness of breath, dizziness or syncope. Improving leg weakness. - Constitutional Vitals: Temp Pulse Resp BP Pulse Ox 98 F 68 16 163/93 96 01/11/17 15:39 01/11/17 15:39 01/11/17 15:39 01/11/17 15:39 01/11/17 15:39 General appearance: Present: A&O X 3, answers questions appropriately - Respiratory Respiratory exam: Present: CTAB (Anterolaterally). Absent: accessory muscle use , rales, rhonchi, wheezes - Cardiovascular Cardiovascular exam: Present: RRR, +S1, +S2. Absent: diastolic murmur, gallop, rubs, systolic murmur - GI/Abdominal GI/Abdominal exam: Present: normal bowel sounds, soft, no peritoneal signs. Absent: distended, tenderness - Extremities Exam Extremities exam: Present: full ROM, warm, radial pulses palpable and symetrical. Absent: calf tenderness, cyanotic, pedal edema Internal Medicine: Result - Labs CBC & Chem 7: 01/10/17 05:50 01/11/17 05:06 Labs: BMP 01/11/17 05:06 Sodium 137 Potassium 3.9 Chloride 106 Carbon Dioxide 24 BUN 14 Creatinine 1.34 H Glucose 162 H Calcium 9.5 Cardiac Enzymes 01/10/17 Range/Units 18:47 Troponin I 0.06 H* (0-0.03) ng/mL - ABG Interpretation ABG results: PT/INR, D-dimer PT 10.6 Seconds (9.4-12.1) 01/10/17 05:50 - Impressions Impressions Brain MRI 01/10/17 10:11 IMPRESSION: Acute left pontine infarct. Mild generalized volume loss and mild chronic microvascular ischemic disease. The findings were sent to the Radiology Results Communication Center at 5:01 pm on 01/10/2017to be communicated to a licensed caregiver. D/ /10/2017 17:22:09 Kendrick Silva MD / ashley Interpreting Provider: Kendrick Silva MD Consult Discharge Plan - Plan Referrals: [facility], SENIOR INSTRUCTIONAL DESIGNER [Advanced Practice Nurse] - (WAITING ON APPROVAL FROM [place] ) [place],PC[place] [Primary Care Provider] - 01/19/17 1:30 pm
[2017-01-11] MEDS ORDERED: Insulin LISPRO 300 UNITS/3 ML VIAL SQ SCH (21:00)
[2017-01-12] MEDS: *HR* Heparin 5,000 UNIT/ML VIAL SQ SCH (05:15)
[2017-01-12] MEDS: hydrALAZINE 25 MG TABLET PO SCH ×2 (08:34→15:18)
[2017-01-12] MEDS: Aspirin Enteric Coated 81 MG Tablet PO SCH (08:34)
[2017-01-12] MEDS: Insulin LISPRO 300 UNITS/3 ML VIAL SQ SCH ×2 (08:37→11:32)
[2017-01-12] MEDS ORDERED: amLODIPine 5 MG TABLET PO SCH (09:00)
[2017-01-12 11:22] VITALS: BP 185/76
--- NOTE | 2017-01-12 13:15 | Discharge Summary ---
Date of Encounter: 01/12/17 Time of Encounter: 09:30 - Discharge Diagnosis (1) CVA (cerebral vascular accident) Priority: Primary Status: Acute Qualifiers: CVA mechanism: occlusion Precerebral and cerebral artery: unspecified precerebral artery Qualified Code(s): I63.20 - Cerebral infarction due to unspecified occlusion or stenosis of unspecified precerebral arteries (2) Arrhythmia Priority: Primary Status: Acute Qualifiers: Arrhythmia type: unspecified cardiac arrhythmia Qualified Code(s): I49.9 - Cardiac arrhythmia, unspecified (3) Weakness Priority: Primary Status: Acute (4) CAD (coronary artery disease) Priority: Secondary Status: Chronic Qualifiers: Coronary Disease-Associated Artery/Lesion type: bypass graft [place] vs. transplanted heart: [place] heart Associated angina: without angina Qualified Code(s): I25.810 - Atherosclerosis of coronary artery bypass graft(s) without angina pectoris (5) Essential hypertension Priority: Secondary Status: Chronic (6) Diabetes mellitus Priority: Secondary Status: Chronic Qualifiers: Diabetes mellitus type: type 2 Diabetes mellitus complication status: with unspecified complications Diabetes mellitus terminal gauger insulin use: without terminal gauger use Qualified Code(s): E11.8 - Type 2 diabetes mellitus with unspecified complications - Discharge Medications Prescriptions: hydrALAZINE [HydrALAZINE] 25 mg PO Q8HR #90 tablet amLODIPine [Norvasc] 10 mg PO DAILY #60 tablet Atorvastatin [Lipitor] 40 mg PO HS #30 tablet Clopidogrel [Plavix] 75 mg PO DAILY #30 tablet Home Medications: glipiZIDE [Glipizide] 5 mg PO DAILY 12/06/15 [History] Aspirin [Lo-Dose Aspirin EC] 81 mg PO DAILY 01/10/17 [History] Polyvinyl Alcohol/Povidone/Pf [Refresh Classic Eye Drops] 1 drop BOTH EYES QID 01/10/17 [History] Atorvastatin [Lipitor] 40 mg PO HS #30 tablet 01/12/17 [Rx] Clopidogrel [Plavix] 75 mg PO DAILY #30 tablet 01/12/17 [Rx] amLODIPine [Norvasc] 10 mg PO DAILY #60 tablet 01/12/17 [Rx] hydrALAZINE [HydrALAZINE] 25 mg PO Q8HR #90 tablet 01/12/17 [Rx] Allergies/Adverse Reactions: Allergies No Known Allergies Allergy (Verified 11/29/15 11:10) Procedures/tests Complete & Pending: Procedures Performed prior 72 hours Category Date Time Status MR head/brain wo con [MR] Routine MRI 01/10/17 10:11 Completed SYLWIA [EV ankle brachial index] Routine Y 01/10/17 12:18 Completed ECG 12 lead ECG [ECG] Routine Y 01/10/17 04:17 Completed EV carotid duplex imaging BI Stat Y 01/11/17 09:29 Completed EV echocardiogram Routine Y 01/10/17 04:44 Completed Date of admission: 01/10/17 03:37 Primary care physician: PCP [place] Consults: 01/10/17 05:34 Consult to Cardiology [CONS] Routine Comment: Consulting Provider: Card[facility] Reason for Consult: Arrhythmia Call Completed: Yes Consult to Neurology [CONS] Routine Consulting Provider: Neurology [facility] Reason for Consult: lower extremity weakness Call Completed: Yes Consult to Occupational Therapy [CONS] Routine Comment: Evaluate, develop and implement POC Reason for Consult: Weakness/hx of CVA Consult to Physical Therapy [CONS] Routine Comment: Evaluate, develop and implement POC Reason for Consult: Weakness/hx of CVA Discharging clinician: Yvette Zheng Anticipated date of discharge: 01/12/17 - Patient Status Disposition: Home, Self-Care Condition: Fair Functional capacity at discharge: uses cane/walker Overall status at discharge: patient is progressing back to baseline - Discharge Instructions Instructions: Hydralazine (By mouth), Amlodipine (By mouth), Atorvastatin (By mouth), Clopidogrel (By mouth), Ischemic Stroke (DC), Chronic Hypertension (DC) , Self Care Measures After a Stroke (DC) Follow Up With: [facility], DOCUMENTATION MANAGER [Advanced Practice Nurse] - (WAITING ON APPROVAL FROM ME ) [facility],PCP [Primary Care Provider] - 01/19/17 1:30 pm - Diet and Activity Activity: as per physical therapy, increase activity as tolerated Diet: diabetic diet, low fat, low cholesterol, low salt diet Hospital course: Mr. Ibrahim is a 86 year old male with the above medical problems, who was sent from [place] for evaluation of bradycardia, possible second degree heart block and leg weakness. Patient was monitored on telemetry, cardiology was consulted. After reviewing previous EKGs and telemetry strips, patient was noted to have sinus arrhythmia, first-degree AV block with PACs. His heart rate gradually improved but he is noted to have significant conduction disease and per cardiology, to avoid negative chronotropic agents for now. He was also noted to have labile blood pressure, often with systolic blood pressure in 180s, and he started on hydralazine along with Norvasc with appropriate blood pressure control. Neurology was consulted for subjective bilateral lower extremity weakness and stroke workup was recommended. 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 He was noted to be on baby aspirin to which Plavix and statin was added. Lipid profile shows elevated triglycerides and slightly elevated LDL cholesterol and patient was explained about lifestyle modifications. Bilateral carotid Doppler showed nonstenotic plaque. Echocardiogram showed preserved ejection fraction, mild concentrate LVH, mild left ventricular diastolic dysfunction, mild hypokinesis of apical septum. Per neurology, pontine infarcts can sometimes cause cardiac dysrhythmias and labile blood pressures. Physical therapy evaluation was completed, recommended inpatient rehabilitation , which the patient declined. He also refuses home health services. He is being discharged with referral to outpatient physical therapy, which would be arranged by the [facility]. He is otherwise medically stable for discharge. - Time Spent with Patient Total time spent providing and/or coordinating discharge services: Greater than 30 minutes (50 min) - Constitutional Vitals: Temp Pulse Resp BP Pulse Ox 97.4 F L 90 18 185/76 95 01/12/17 11:20 01/12/17 11:20 01/12/17 11:20 01/12/17 11:20 01/12/17 04:37 General appearance: Present: A&O X 3, answers questions appropriately - Respiratory Respiratory exam: Present: CTAB. Absent: accessory muscle use, rales, rhonchi, wheezes - Cardiovascular Cardiovascular exam: Present: RRR, +S1, +S2. Absent: diastolic murmur, gallop, rubs, systolic murmur
--- NOTE | 2017-01-13 09:31 | Carotid Imaging Report ---
Carotid Duplex Patient Name:Isabel Ibrahim Order Number:[id number] Procedure Date:01/11/2017 Date:1930ge:86 yrs Gender:Male Lt BP:160 / 99 mmHg Rt.BP:165 / 108 mmHgHeart Rate: Location:[facility] Room #: 2N12 Information Technology Officer:Suzanne Patel, AGA, RVT Referring MD:Alexei Mccain DO curing press operator:[facility] Reading MD:Rusty Cantu MD Primary Indications:Left [place] Lacunar Infarct Risk Factors Yes/No Diabetes Yes Hypertension Yes Hypercholesterolemia No Hx of CVA Yes Smoker Previous Yes Impressions: Findings: Bilateral carotid system has nonstenotic plaque. Recommendations: After imaging the patient returned to their room. Findings Carotid Duplex: Right: There is nonstenotic plaque in the right mid common carotid artery. There is smooth homogeneous plaque. There is nonstenotic plaque in the right bifurcation. There is smooth heterogeneous plaque. The right eca has turbulent flow with plaque. There is smooth homogeneous plaque. There is antegrade spectral Doppler flow patterns in the right vertebral artery. Left: There is nonstenotic plaque in the left bifurcation. There is irregular heterogeneous plaque. There is nonstenotic plaque in the left proximal internal carotid artery. There is smooth homogeneous plaque. The left eca has turbulent flow with plaque. There is smooth heterogeneous plaque. There is antegrade spectral Doppler flow patterns in the left vertebral artery. Prior Study: No prior study available for comparison. Carotid Results Right PSV EDV Assessment Proximal CCA 45 8 Normal Mid CCA 45 12 Non Stenotic Plaque Distal CCA 44 7 Normal Bifurcation 41 9 Non Stenotic Plaque Proximal ICA 47 13 Normal Mid ICA 30 8 Normal Distal ICA 49 10 Normal ECA 138 Turbulent Flow Vertebral Artery 39 9 Antegrade Flow Left PSV EDV Assessment Proximal CCA 88 12 Normal Mid CCA 70 11 Normal Distal CCA 38 9 Normal Bifurcation 44 6 Non Stenotic Plaque Proximal ICA 47 13 Non Stenotic Plaque Mid ICA 74 15 Normal Distal ICA 58 13 Normal ECA 112 7 Turbulent Flow Vertebral Artery 38 13 Antegrade Flow Ratio's Right ICA/CCA Ratio: 1.09 ICA/CCA Values: 49/45 Left ICA/CCA Ratio: 0.84 ICA/CCA Values: 74/88 Updated by Rusty Cantu MD on 01/13/2017 9:26:03 AM electronically signed on 01/13/2017 9:26:16 AM with status of Final
== END 2017-01-12 15:27 | disposition home or self-care (01) | DRG 65 ==
LOC: SUATTDRO 03:37 → ICNU 03:37 → 2NNU 14:19
PROVIDERS: ADMIT Internal Medicine Sleep Medicine; ATTEND Internal Medicine

== ENCOUNTER 2019-05-02 15:52 | Observation (INO) ==
[2019-05-02] MEDS ORDERED: 0.9 % Sodium Chloride 1,000 ML IVC ONE (16:01)
--- NOTE | 2019-05-02 16:06 | Emergency Department Note ---
Disposition Clinical Impression: Weakness generalized Disposition: Still a Patient Condition: Fair [facility]errals: [facility] Care Provider[facility] - Time of Disposition: 17:03 General Adult HPI - General Stated complaint: Possible CVA Time Seen by Provider: 05/02/19 15:56 Source: patient, family, EMS Mode of arrival: EMS Limitations: no limitations Nursing Notes Reviewed: Yes Vital Signs Reviewed: Yes - History of Present Illness HPI Narrative: 88-year-old male that had a Hernandez placed last for acute urinary retention that reports he started feeling "like he was not worth a damn" approximately 2 hours ago. Patient denies fevers or chills, chest pain, shortness of breath. He admits to just a feeling of all of her weakness. He knows his name, birthdate, day of the week, location, and who the president is. Pt reports that he took a medication for his prostate approx two hours prior to arrival. - Related Data Home Medications Medication Instructions Recorded Confirmed glipiZIDE [Glipizide] 5 mg PO DAILY 12/06/15 01/10/17 Aspirin [Lo-Dose Aspirin EC] 81 mg PO DAILY 01/10/17 01/10/17 Polyvinyl Alcohol/Povidone/Pf 1 drop BOTH EYES QID 01/10/17 01/10/17 [Refresh Classic Eye Drops] Previous Rx's Medication Instructions Recorded Atorvastatin [Lipitor] 40 mg PO HS #30 tablet 01/12/17 Clopidogrel [Plavix] 75 mg PO DAILY #30 tablet 01/12/17 amLODIPine [Norvasc] 10 mg PO DAILY #60 tablet 01/12/17 hydrALAZINE [HydrALAZINE] 25 mg PO Q8HR #90 tablet 01/12/17 Doxycycline 100 mg PO BID #14 capsule 04/19/19 Allergies Allergy/AdvReac Type Severity Reaction Status Date / Time No Known Allergies Allergy Verified 05/02/19 16:01 Review of Systems: In addition to that documented in the HPI above, the additional ROS was ob tained: Constitutional: Denies fevers or chills Eyes: Denies vision changes ENMT: Denies sore throat CV: Denies chest pain Resp: Denies SOB GI: Denies vomiting or diarrhea : Reports hx of urinary retention requiring hernandez placement MSK: Denies recent trauma Skin: Denies new rashes Neuro: Denies new numbness or tingling or weakness Past Medical History - Past Medical History Attestation: Yes The following information was validated with the patient. Medical history: Reports: arthritis, COPD, coronary artery disease, diabetes, GERD, GI bleed, hyperlipidemia, hypertension, kidney stones, myocardial inf arction, renal disease, other Surgical history: 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) Psychiatric history: Reports: no psych history - Social History Smoking Status: Former smoker Smokeless Tobacco Status: No Alcohol use: Reports: none Drug use: Reports: none Physical Exam General: A&O x 3 - person, place, time, president. No acute distress. Well developed, well nourished. Head: atraumatic, normocephalic. ENT: No conjunctival injection, no scleral icterus. PERRLA. EOMI. Oropharynx non- erythematous. mucous membranes moist. Neuro: No focal deficits, no speech deficit, no facial droop, mentating well. BUE/BLE Str 5/5. Sid UE/LE sensation intact. CN II-XII intact. Pulm: Lungs CTAB A/P. No wheezes, rales, ronchi. Cardio: RRR no m/r/g. Chest not tender to palpation. Abd: Soft, non-distended. Normoactive bowel sounds. Non-tender to palpation. No guarding. Non rigid. Extremities: Radial pulses 2+ sid, dorsalis pedis/posterior tibialis 2+ sid. No LE edema. No cyanosis, clubbing. Skin: warm, dry, intact. No rashes. Psych: Appropriate mood and affect. Answers questions appropriately. Cooperative with exam. Course Vital Signs Temperature 98.1 F 05/02/19 15:58 Pulse Rate 105 05/02/19 15:58 Respiratory Rate 20 05/02/19 15:58 Blood Pressure 180/93 05/02/19 15:58 O2 Sat by Pulse Oximetry 97 05/02/19 15:58 Temperature 98.1 F 05/02/19 15:58 Pulse Rate 94 05/02/19 16:31 Respiratory Rate 16 05/02/19 16:31 Blood Pressure 198/88 05/02/19 16:31 O2 Sat by Pulse Oximetry 97 05/02/19 16:31 Oxygen Delivery Oxygen Delivery Room Air Medical Decision Making - [facility] Narrative Medical decision making narrative: 88M with recent hx of acute urinary retention for which a hernandez was placed last week by the urologist. He presents with acute onset of weakness. He has a hernandez in place. Will replace the hernandez and draw urine off new hernandez. Will obtain infectious workup to include CBC, BMP, UA, CXR, Head CT. Pt will be signed out to night team - please see notes by Dr. Soni and Dr. Nova for full results of the workup and disposition. - Medical Records Medical records reviewed: Yes I reviewed the patient's medical records. - Lab Data Lab results reviewed: Yes I reviewed the patient's lab results. Result diagrams: 05/02/19 16:27 05/02/19 16:27 Lab Results 05/02/19 05/02/19 05/02/19 Range/Units 16:27 16:27 16:27 WBC 10.9 (4.3-11.1) K/mcL RBC 5.16 (4.19-5.50) M/mcL Hgb 13.5 (12.9-16.9) g/dL Hct 42.6 (37.5-50.1) % MCV 82.6 L (83.0-100.0) fL MCH 26.2 L (28.0-33.3) pg MCHC 31.7 (31.6-35.5) g/dL RDW 17.6 H (11.5-14.5) % Plt Count 302 (140-400) K/mcL MPV 10.3 (9.4-12.4) fL Immature Gran % 0.3 (0-4) % Seg Neutrophils % 83.7 % Lymphocytes % 9.9 % Monocytes % 5.2 % Eosinophils % 0.4 % Basophils % 0.5 % Neutrophils # 9.2 H (1.6-8.9) K/mcL Lymphocytes # 1.1 (0.6-4.6) K/mcL Monocytes # 0.6 (0.0-1.3) K/mcL Eosinophils # 0.0 (0.0-0.6) K/mcL Basophils # 0.1 (0.0-0.2) K/mcL Sodium 137 (136-145) mEq/L Potassium 3.5 (3.5-5.1) mEq/L Chloride 99 (98-107) mEq/L Carbon Dioxide 27 (23-29) mEq/L BUN 16 (8-23) mg/dL Creatinine 1.27 (0.70-1.30) mg/dL Est GFR ( Amer) > 60 (> 60) Est GFR (Non-Af Amer) 54 L (> 60) BUN/Creatinine Ratio 13 (6-26) Glucose 125 H (70-105) mg/dL Calculated Osmolality 287 (280-300) Calcium 8.8 (8.6-10.3) mg/dL Total Bilirubin 0.6 (0.3-1.0) mg/dL AST 13 (13-39) Units/L ALT 8 (7-52) Units/L Alkaline Phosphatase 164 H (34-104) Units/L Troponin I 0.03 (< 0.04) ng/mL Serum Total Protein 6.5 (6.4-8.9) g/dL Albumin 3.3 L (3.5-5.7) g/dL Globulin 3.2 (2.4-3.5) g/dL Albumin/Globulin Ratio 1.0 L (1.1-2.2) Ethyl Alcohol < 10 (Less than 10) mg/dL - EKG Data EKG #1 EKG attestation: Yes I reviewed and interpreted this EKG. EKG results narrative: Heart rate 109, rhythm sinus with ectopic atrial tachycardia, axis normal. IN 169, QRS 128 prolonged, QTC 565 and prolonged. Less than [address] depression noted in leads V4 through V6 however given the coexistence of a right bundle branch block there is no clinically significant ST elevation or depression by sgarbosa's criteria. No old EKG available for comparison.
--- NOTE | 2019-05-02 16:08 | Emergency Department Note ---
Disposition Clinical Impression: Weakness generalized Disposition: Still a Patient Condition: Fair [facility]errals: [facility] [Primary Care Provider[facility] - Time of Disposition: 16:53 General Adult HPI - General Stated complaint: Possible CVA Time Seen by Provider: 05/02/19 15:56 Nursing Notes Reviewed: Yes Vital Signs Reviewed: Yes - History of Present Illness HPI Narrative: This documentation is done with the assistance of Dragon dictation. Despite efforts made to ensure accuracy, there may be inaccuracies in hearing aid assistant or spelling and typographical errors. I examined this patient and my medical decision-making was reviewed with the Resident Physician. I agree with the documented findings, disposition and tr eatment plan as described except to the extent set forth below. Patient was seen and evaluated by Dr. Becerril, I agree with their evaluation and management plan, I supervised care the patient's stay. Patient presents today with generalized weakness it has been going on today. He states he just does not feel well denies any chest pain or any pain at all. He is moving all extremities the medics said he was able to come over to the carpet very weak. He does have a Adams catheter in. He is fairly poor historian with his history. He did take a medication for his prostate which may be a blood pressure medication. Benadryl workup on him and reassess. He may need admission. He does not meet any of the stroke alert criteria at this time. I reviewed the residents documentation and agree with the residents assessment and plan of care. I have personally had face to face time with the patient. (Brief History, Brief Exam, and MDM) I personally supervised and was present for the kitchen/critical portions of the following procedures completed by the resident: EKG was interpreted by the resident under my supervision, I agree with their interpretation. - Related Data Home Medications Medication Instructions Recorded Confirmed glipiZIDE [Glipizide] 5 mg PO DAILY 12/06/15 01/10/17 Aspirin [Lo-Dose Aspirin EC] 81 mg PO DAILY 01/10/17 01/10/17 Polyvinyl Alcohol/Povidone/Pf 1 drop BOTH EYES QID 01/10/17 01/10/17 [Refresh Classic Eye Drops] Previous Rx's Medication Instructions Recorded Atorvastatin [Lipitor] 40 mg PO HS #30 tablet 01/12/17 Clopidogrel [Plavix] 75 mg PO DAILY #30 tablet 01/12/17 amLODIPine [Norvasc] 10 mg PO DAILY #60 tablet 01/12/17 hydrALAZINE [HydrALAZINE] 25 mg PO Q8HR #90 tablet 01/12/17 Doxycycline 100 mg PO BID #14 capsule 04/19/19 Allergies Allergy/AdvReac Type Severity Reaction Status Date / Time No Known Allergies Allergy Verified 05/02/19 16:01 Past Medical History - Past Medical History Medical history: Reports: arthritis, COPD, coronary artery disease, diabetes, GERD, GI bleed, hyperlipidemia, hypertension, kidney stones, myocardial infarction, renal disease, other Surgical history: 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) Psychiatric history: Reports: no psych history - Social History Smoking Status: Former smoker Smokeless Tobacco Status: No Alcohol use: Reports: none Drug use: Reports: none Course Vital Signs Temperature 98.1 F 05/02/19 15:58 Pulse Rate 105 05/02/19 15:58 Respiratory Rate 20 05/02/19 15:58 Blood Pressure 180/93 05/02/19 15:58 O2 Sat by Pulse Oximetry 97 05/02/19 15:58 Temperature 98.1 F 05/02/19 15:58 Pulse Rate 94 05/02/19 16:31 Respiratory Rate 16 05/02/19 16:31 Blood Pressure 198/88 05/02/19 16:31 O2 Sat by Pulse Oximetry 97 05/02/19 16:31 Oxygen Delivery Oxygen Delivery Room Air Medical Decision Making - [facility] Narrative Medical decision making narrative: 1652 hrs.: Patient's CBC is back waiting another labs and CT. He is stable at this time. Signing him out to the evening ER physician Dr. Soni for further management disposition. - Lab Data Result diagrams: 05/02/19 16:27 Lab Results 05/02/19 Range/Units 16:27 WBC 10.9 (4.3-11.1) K/mcL RBC 5.16 (4.19-5.50) M/mcL Hgb 13.5 (12.9-16.9) g/dL Hct 42.6 (37.5-50.1) % MCV 82.6 L (83.0-100.0) fL MCH 26.2 L (28.0-33.3) pg MCHC 31.7 (31.6-35.5) g/dL RDW 17.6 H (11.5-14.5) % Plt Count 302 (140-400) K/mcL MPV 10.3 (9.4-12.4) fL Immature Gran % 0.3 (0-4) % Seg Neutrophils % 83.7 % Lymphocytes % 9.9 % Monocytes % 5.2 % Eosinophils % 0.4 % Basophils % 0.5 % Neutrophils # 9.2 H (1.6-8.9) K/mcL Lymphocytes # 1.1 (0.6-4.6) K/mcL Monocytes # 0.6 (0.0-1.3) K/mcL Eosinophils # 0.0 (0.0-0.6) K/mcL Basophils # 0.1 (0.0-0.2) K/mcL
[2019-05-02 16:39] LABS: Basophils # 0.1 K/mcL (0.0-0.2); Basophils % 0.5 %; Eosinophils % 0.4 %; Hematocrit 42.6 % (37.5-50.1); Hemoglobin 13.5 g/dL (12.9-16.9); Immature Granulocytes % 0.3 % (0-4); Lymphocytes # 1.1 K/mcL (0.6-4.6); Lymphocytes % 9.9 %; Mean Corpuscular HGB Conc 31.7 g/dL (31.6-35.5); Mean Corpuscular Hemoglobin 26.2 pg (28.0-33.3); Mean Corpuscular Volume 82.6 fL (83.0-100.0); Mean Platelet Volume 10.3 fL (9.4-12.4); Monocytes # 0.6 K/mcL (0.0-1.3); Monocytes % 5.2 %; Neutrophils # 9.2 K/mcL (1.6-8.9); Platelet Count 302 K/mcL (140-400); Red Blood Count 5.16 M/mcL (4.19-5.50); Red Cell Distribution Width 17.6 % (11.5-14.5); Segmented Neutrophils % 83.7 %; White Blood Count 10.9 K/mcL (4.3-11.1)
[2019-05-02 17:02] LABS: Alanine Aminotransferase 8 Units/L (7-52); Albumin 3.3 g/dL (3.5-5.7); Alkaline Phosphatase 164 Units/L (34-104); Aspartate Amino Transferase 13 Units/L (13-39); BUN/Creatinine Ratio 13 (6-26); Bilirubin,Total 0.6 mg/dL (0.3-1.0); Blood Urea Nitrogen 16 mg/dL (8-23); Calcium 8.8 mg/dL (8.6-10.3); Carbon Dioxide 27 mEq/L (23-29); Chloride 99 mEq/L (98-107); Ethanol < 10 mg/dL (Less than 10); Globulin 3.2 g/dL (2.4-3.5); Glucose 125 mg/dL (70-105); Osmolality,Calculated 287 (280-300); Potassium 3.5 mEq/L (3.5-5.1); Sodium 137 mEq/L (136-145); Total Protein 6.5 g/dL (6.4-8.9); eGFR For African Americans > 60 (> 60); eGFR For Non-African Americans 54 (> 60)
--- NOTE | 2019-05-02 17:04 | Emergency Department Note ---
Disposition Clinical Impression: Weakness generalized UTI (urinary tract infection) Qualifiers: Urinary tract infection type: acute cystitis Hematuria presence: without hematuria Qualified Code(s): N30.00 - Acute cystitis without hematuria Disposition: Admitted As Inpatient Condition: Good [facility] - Time of Disposition: 18:23 General Adult HPI - General Chief complaint: ED Altered Mental Status Stated complaint: Possible CVA Time Seen by Provider: 05/02/19 15:56 Source: patient, family, EMS Mode of arrival: EMS Limitations: no limitations - History of Present Illness HPI Narrative: Patient signed out to me by day team. Please refer to their documentation for entire history of present illness. Pain Scale: 3 - Related Data Home Medications Medication Instructions Recorded Confirmed glipiZIDE [Glipizide] 5 mg PO DAILY 12/06/15 01/10/17 Aspirin [Lo-Dose Aspirin EC] 81 mg PO DAILY 01/10/17 01/10/17 Polyvinyl Alcohol/Povidone/Pf 1 drop BOTH EYES QID 01/10/17 01/10/17 [Refresh Classic Eye Drops] Previous Rx's Medication Instructions Recorded Atorvastatin [Lipitor] 40 mg PO HS #30 tablet 01/12/17 Clopidogrel [Plavix] 75 mg PO DAILY #30 tablet 01/12/17 amLODIPine [Norvasc] 10 mg PO DAILY #60 tablet 01/12/17 hydrALAZINE [HydrALAZINE] 25 mg PO Q8HR #90 tablet 01/12/17 Doxycycline 100 mg PO BID #14 capsule 04/19/19 Allergies Allergy/AdvReac Type Severity Reaction Status Date / Time No Known Allergies Allergy Verified 05/02/19 16:01 Past Medical History - Past Medical History Medical history: Reports: arthritis, COPD, coronary artery disease, diabetes, GERD, GI bleed, hyperlipidemia, hypertension, kidney stones, myocardial infarction, renal disease, other 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 Laboratory analysis and urine analysis shows urinary tract infection with many bacteria, positive nitrite into numerous to count white cells. We will provide the patient with Rocephin and plan to admit him for, get a urinary tract infection or weakness. Patient became hypertensive therefore 10 mg of labetalol was given. Responded appropriately. At this time patient remains alert and oriented 3 and hemodynamically stable. Patient will be admitted to hospitalist team. I spoke with the hospitalist [employer] Dr. Silva who agrees to accept the patient at this time. Vital Signs Temperature 98.1 F 05/02/19 15:58 Pulse Rate 105 05/02/19 15:58 Respiratory Rate 20 05/02/19 15:58 Blood Pressure 180/93 05/02/19 15:58 O2 Sat by Pulse Oximetry 97 05/02/19 15:58 Temperature 98.1 F 05/02/19 15:58 Pulse Rate 90 05/02/19 18:01 Respiratory Rate 15 05/02/19 18:01 Blood Pressure 184/98 05/02/19 18:01 O2 Sat by Pulse Oximetry 94 05/02/19 18:01 Oxygen Delivery Oxygen Delivery Room Air Medical Decision Making - Lab Data Result diagrams: 05/02/19 16:27 05/02/19 16:27 Lab Results 05/02/19 05/02/19 05/02/19 Range/Units 16:27 16:27 16:27 WBC 10.9 (4.3-11.1) K/mcL RBC 5.16 (4.19-5.50) M/mcL Hgb 13.5 (12.9-16.9) g/dL Hct 42.6 (37.5-50.1) % MCV 82.6 L (83.0-100.0) fL MCH 26.2 L (28.0-33.3) pg MCHC 31.7 (31.6-35.5) g/dL RDW 17.6 H (11.5-14.5) % Plt Count 302 (140-400) K/mcL MPV 10.3 (9.4-12.4) fL Immature Gran % 0.3 (0-4) % Seg Neutrophils % 83.7 % Lymphocytes % 9.9 % Monocytes % 5.2 % Eosinophils % 0.4 % Basophils % 0.5 % Neutrophils # 9.2 H (1.6-8.9) K/mcL Lymphocytes # 1.1 (0.6-4.6) K/mcL Monocytes # 0.6 (0.0-1.3) K/mcL Eosinophils # 0.0 (0.0-0.6) K/mcL Basophils # 0.1 (0.0-0.2) K/mcL Sodium 137 (136-145) mEq/L Potassium 3.5 (3.5-5.1) mEq/L Chloride 99 (98-107) mEq/L Carbon Dioxide 27 (23-29) mEq/L BUN 16 (8-23) mg/dL Creatinine 1.27 (0.70-1.30) mg/dL Est GFR ( Amer) > 60 (> 60) Est GFR (Non-Af Amer) 54 L (> 60) BUN/Creatinine Ratio 13 (6-26) Glucose 125 H (70-105) mg/dL Calculated Osmolality 287 (280-300) Calcium 8.8 (8.6-10.3) mg/dL Total Bilirubin 0.6 (0.3-1.0) mg/dL AST 13 (13-39) Units/L ALT 8 (7-52) Units/L Alkaline Phosphatase 164 H (34-104) Units/L Troponin I 0.03 (< 0.04) ng/mL Serum Total Protein 6.5 (6.4-8.9) g/dL Albumin 3.3 L (3.5-5.7) g/dL Globulin 3.2 (2.4-3.5) g/dL Albumin/Globulin Ratio 1.0 L (1.1-2.2) TSH 3.918 (0.340-5.600) mcIU/mL Urine Color (Yellow) Urine Clarity (Clear) Urine pH (5.0-8.0) pH Units Ur Specific [place] (1.010-1.025) Urine Protein (Neg-Trace) mg/dL Urine Glucose (UA) (Normal) mg/dL Urine Ketones (Negative) mg/dL Urine Blood (Negative) Urine Nitrite (Negative) Urine Bilirubin (Negative) Urine Urobilinogen (Normal) mg/dL Ur Leukocyte Esterase (Negative) Urine Microscopic RBC (0-3) per hpf Urine Microscopic WBC (0-3) per hpf Ur Squamous Epith Cells (None-Few) per lpf Urine Bacteria (None-Few) per hpf Hyaline Casts (None-Few) per lpf Granular Casts (None Seen) per lpf Ur Culture Indicated? (NO) Ethyl Alcohol < 10 (Less than 10) mg/dL 05/02/19 Range/Units 17:06 WBC (4.3-11.1) K/mcL RBC (4.19-5.50) M/mcL Hgb (12.9-16.9) g/dL Hct (37.5-50.1) % MCV (83.0-100.0) fL MCH (28.0-33.3) pg MCHC (31.6-35.5) g/dL RDW (11.5-14.5) % Plt Count (140-400) K/mcL MPV (9.4-12.4) fL Immature Gran % (0-4) % Seg Neutrophils % % Lymphocytes % % Monocytes % % Eosinophils % % Basophils % % Neutrophils # (1.6-8.9) K/mcL Lymphocytes # (0.6-4.6) K/mcL Monocytes # (0.0-1.3) K/mcL Eosinophils # (0.0-0.6) K/mcL Basophils # (0.0-0.2) K/mcL Sodium (136-145) mEq/L Potassium (3.5-5.1) mEq/L Chloride (98-107) mEq/L Carbon Dioxide (23-29) mEq/L BUN (8-23) mg/dL Creatinine (0.70-1.30) mg/dL Est GFR ( Amer) (> 60) Est GFR (Non-Af Amer) (> 60) BUN/Creatinine Ratio (6-26) Glucose (70-105) mg/dL Calculated Osmolality (280-300) Calcium (8.6-10.3) mg/dL Total Bilirubin (0.3-1.0) mg/dL AST (13-39) Units/L ALT (7-52) Units/L Alkaline Phosphatase (34-104) Units/L Troponin I (< 0.04) ng/mL Serum Total Protein (6.4-8.9) g/dL Albumin (3.5-5.7) g/dL Globulin (2.4-3.5) g/dL Albumin/Globulin Ratio (1.1-2.2) TSH (0.340-5.600) mcIU/mL Urine Color Dark Yellow (Yellow) Urine Clarity Turbid A (Clear) Urine pH 6.0 (5.0-8.0) pH Units Ur Specific [place] 1.022 (1.010-1.025) Urine Protein >=300 H (Neg-Trace) mg/dL Urine Glucose (UA) Normal (Normal) mg/dL Urine Ketones 15 H (Negative) mg/dL Urine Blood Large H (Negative) Urine Nitrite Positive A (Negative) Urine Bilirubin Small H (Negative) Urine Urobilinogen Normal (Normal) mg/dL Ur Leukocyte Esterase Large H (Negative) Urine Microscopic RBC TNTC H (0-3) per hpf Urine Microscopic WBC TNTC H (0-3) per hpf Ur Squamous Epith Cells Many H (None-Few) per lpf Urine Bacteria Many H (None-Few) per hpf Hyaline Casts None Seen (None-Few) per lpf Granular Casts Moderate H (None Seen) per lpf Ur Culture Indicated? YES A (NO) Ethyl Alcohol (Less than 10) mg/dL
[2019-05-02 17:13] LABS: Thyroid Stimulating Hormone 3.918 mcIU/mL (0.340-5.600)
[2019-05-02 17:26] LABS: Bilirubin,Urine Small (Negative); Blood,Urine Large (Negative); Clarity,Urine Turbid (Clear); Color,Urine Dark Yellow (Yellow); Glucose,Urine (UA) Normal (Normal); Ketones,Urine 15 mg/dL (Negative); Leukocyte Esterase,Urine Large (Negative); Nitrite,Urine Positive (Negative); Protein,Urine >=300 mg/dL (Neg-Trace); Specific Gravity,Urine 1.022 (1.010-1.025); Urobilinogen,Urine Normal (Normal)
[2019-05-02 17:31] LABS: Bacteria,Urine Many per hpf (None-Few); Squamous Epithelial Cell,Urine Many per lpf (None-Few); WBC,Urine TNTC per hpf (0-3)
[2019-05-02] MEDS ORDERED: *HR* Labetalol 20 MG/4 ML SYRINGE IVP ONE (17:37)
[2019-05-02] MEDS ORDERED: cefTRIAXone 1,000 MG in Water for inj. (sterile) 10 ML IVP ONE (17:37)
[2019-05-02 17:47] LABS: RBC,Urine TNTC per hpf (0-3)
[2019-05-02 17:48] LABS: Granular Casts,Urine Moderate per lpf (None Seen); Hyaline Casts,Urine None Seen per lpf (None-Few)
--- NOTE | 2019-05-02 17:55 | Emergency Department Note ---
Disposition Clinical Impression: Weakness generalized, UTI (urinary tract infection) Disposition: Admitted As Inpatient Condition: Good Time of Disposition: 17:55 General Adult HPI - General Chief complaint: ED Altered Mental Status Stated complaint: Possible CVA Time Seen by Provider: 05/02/19 15:56 Source: patient, family, EMS Mode of arrival: EMS Limitations: no limitations Nursing Notes Reviewed: Yes Vital Signs Reviewed: Yes - History of Present Illness Pain Scale: 3 - Related Data Home Medications Medication Instructions Recorded Confirmed glipiZIDE [Glipizide] 5 mg PO DAILY 12/06/15 01/10/17 Aspirin [Lo-Dose Aspirin EC] 81 mg PO DAILY 01/10/17 01/10/17 Polyvinyl Alcohol/Povidone/Pf 1 drop BOTH EYES QID 01/10/17 01/10/17 [Refresh Classic Eye Drops] Previous Rx's Medication Instructions Recorded Atorvastatin [Lipitor] 40 mg PO HS #30 tablet 01/12/17 Clopidogrel [Plavix] 75 mg PO DAILY #30 tablet 01/12/17 amLODIPine [Norvasc] 10 mg PO DAILY #60 tablet 01/12/17 hydrALAZINE [HydrALAZINE] 25 mg PO Q8HR #90 tablet 01/12/17 Doxycycline 100 mg PO BID #14 capsule 04/19/19 Allergies Allergy/AdvReac Type Severity Reaction Status Date / Time No Known Allergies Allergy Verified 05/02/19 16:01 Past Medical History - Past Medical History Medical history: Reports: arthritis, COPD, coronary artery disease, diabetes, GERD, GI bleed, hyperlipidemia, hypertension, kidney stones, myocardial infarction, renal disease, other Surgical history: 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) Psychiatric history: Reports: no psych history - Social History Smoking Status: Former smoker Smokeless Tobacco Status: No Alcohol use: Reports: none Drug use: Reports: none Physical Exam - General Limitations: no limitations General appearance: alert, in no apparent distress Course Vital Signs Temperature 98.1 F 05/02/19 15:58 Pulse Rate 105 05/02/19 15:58 Respiratory Rate 20 05/02/19 15:58 Blood Pressure 180/93 05/02/19 15:58 O2 Sat by Pulse Oximetry 97 05/02/19 15:58 Temperature 97.8 F 05/02/19 19:52 Pulse Rate 87 05/02/19 19:52 Respiratory Rate 15 05/02/19 19:52 Blood Pressure 197/89 05/02/19 19:52 O2 Sat by Pulse Oximetry 95 05/02/19 19:52 Oxygen Delivery Oxygen Delivery Room Air Medical Decision Making - Lab Data Result diagrams: 05/02/19 16:27 05/02/19 16:27 Lab Results 05/02/19 05/02/19 05/02/19 Range/Units 16:04 16:27 16:27 WBC 10.9 (4.3-11.1) K/mcL RBC 5.16 (4.19-5.50) M/mcL Hgb 13.5 (12.9-16.9) g/dL Hct 42.6 (37.5-50.1) % MCV 82.6 L (83.0-100.0) fL MCH 26.2 L (28.0-33.3) pg MCHC 31.7 (31.6-35.5) g/dL RDW 17.6 H (11.5-14.5) % Plt Count 302 (140-400) K/mcL MPV 10.3 (9.4-12.4) fL Immature Gran % 0.3 (0-4) % Seg Neutrophils % 83.7 % Lymphocytes % 9.9 % Monocytes % 5.2 % Eosinophils % 0.4 % Basophils % 0.5 % Neutrophils # 9.2 H (1.6-8.9) K/mcL Lymphocytes # 1.1 (0.6-4.6) K/mcL Monocytes # 0.6 (0.0-1.3) K/mcL Eosinophils # 0.0 (0.0-0.6) K/mcL Basophils # 0.1 (0.0-0.2) K/mcL Sodium 137 (136-145) mEq/L Potassium 3.5 (3.5-5.1) mEq/L Chloride 99 (98-107) mEq/L Carbon Dioxide 27 (23-29) mEq/L BUN 16 (8-23) mg/dL Creatinine 1.27 (0.70-1.30) mg/dL Est GFR ( Amer) > 60 (> 60) Est GFR (Non-Af Amer) 54 L (> 60) BUN/Creatinine Ratio 13 (6-26) Glucose 125 H (70-105) mg/dL POC Glucose 111 H (70-99) mg/dL Calculated Osmolality 287 (280-300) Calcium 8.8 (8.6-10.3) mg/dL Total Bilirubin 0.6 (0.3-1.0) mg/dL AST 13 (13-39) Units/L ALT 8 (7-52) Units/L Alkaline Phosphatase 164 H (34-104) Units/L Troponin I (< 0.04) ng/mL Serum Total Protein 6.5 (6.4-8.9) g/dL Albumin 3.3 L (3.5-5.7) g/dL Globulin 3.2 (2.4-3.5) g/dL Albumin/Globulin Ratio 1.0 L (1.1-2.2) TSH 3.918 (0.340-5.600) mcIU/mL Urine Color (Yellow) Urine Clarity (Clear) Urine pH (5.0-8.0) pH Units Ur Specific [place] (1.010-1.025) Urine Protein (Neg-Trace) mg/dL Urine Glucose (UA) (Normal) mg/dL Urine Ketones (Negative) mg/dL Urine Blood (Negative) Urine Nitrite (Negative) Urine Bilirubin (Negative) Urine Urobilinogen (Normal) mg/dL Ur Leukocyte Esterase (Negative) Urine Microscopic RBC (0-3) per hpf Urine Microscopic WBC (0-3) per hpf Ur Squamous Epith Cells (None-Few) per lpf Urine Bacteria (None-Few) per hpf Hyaline Casts (None-Few) per lpf Granular Casts (None Seen) per lpf Ur Culture Indicated? (NO) Ethyl Alcohol < 10 (Less than 10) mg/dL 05/02/19 05/02/19 Range/Units 16:27 17:06 WBC (4.3-11.1) K/mcL RBC (4.19-5.50) M/mcL Hgb (12.9-16.9) g/dL Hct (37.5-50.1) % MCV (83.0-100.0) fL MCH (28.0-33.3) pg MCHC (31.6-35.5) g/dL RDW (11.5-14.5) % Plt Count (140-400) K/mcL MPV (9.4-12.4) fL Immature Gran % (0-4) % Seg Neutrophils % % Lymphocytes % % Monocytes % % Eosinophils % % Basophils % % Neutrophils # (1.6-8.9) K/mcL Lymphocytes # (0.6-4.6) K/mcL Monocytes # (0.0-1.3) K/mcL Eosinophils # (0.0-0.6) K/mcL Basophils # (0.0-0.2) K/mcL Sodium (136-145) mEq/L Potassium (3.5-5.1) mEq/L Chloride (98-107) mEq/L Carbon Dioxide (23-29) mEq/L BUN (8-23) mg/dL Creatinine (0.70-1.30) mg/dL Est GFR ( Amer) (> 60) Est GFR (Non-Af Amer) (> 60) BUN/Creatinine Ratio (6-26) Glucose (70-105) mg/dL POC Glucose (70-99) mg/dL Calculated Osmolality (280-300) Calcium (8.6-10.3) mg/dL Total Bilirubin (0.3-1.0) mg/dL AST (13-39) Units/L ALT (7-52) Units/L Alkaline Phosphatase (34-104) Units/L Troponin I 0.03 (< 0.04) ng/mL Serum Total Protein (6.4-8.9) g/dL Albumin (3.5-5.7) g/dL Globulin (2.4-3.5) g/dL Albumin/Globulin Ratio (1.1-2.2) TSH (0.340-5.600) mcIU/mL Urine Color Dark Yellow (Yellow) Urine Clarity Turbid A (Clear) Urine pH 6.0 (5.0-8.0) pH Units Ur Specific [place] 1.022 (1.010-1.025) Urine Protein >=300 H (Neg-Trace) mg/dL Urine Glucose (UA) Normal (Normal) mg/dL Urine Ketones 15 H (Negative) mg/dL Urine Blood Large H (Negative) Urine Nitrite Positive A (Negative) Urine Bilirubin Small H (Negative) Urine Urobilinogen Normal (Normal) mg/dL Ur Leukocyte Esterase Large H (Negative) Urine Microscopic RBC TNTC H (0-3) per hpf Urine Microscopic WBC TNTC H (0-3) per hpf Ur Squamous Epith Cells Many H (None-Few) per lpf Urine Bacteria Many H (None-Few) per hpf Hyaline Casts None Seen (None-Few) per lpf Granular Casts Moderate H (None Seen) per lpf Ur Culture Indicated? YES A (NO) Ethyl Alcohol (Less than 10) mg/dL Critical Care Time Critical Care Time: Yes Total Critical Care Time: 35 Attestation: Critical care performed: Time is exclusive of separately billable procedures. Time includes: direct patient care, patient reassessment, coordination of patient care, interpretation of data (laboratory data, radiology data, and respiratory data), review of patient's medical records, medical consultation and documentation of patient care. Procedures included in critical care time: Procedures excluded from critical care time: Attestation Statement - Attestation Attestation: I examined this patient and my medical decision-making was reviewed with the Resident Physician. I agree with the documented findings, disposition and treatment plan as described except to the extent set forth below. Patient signed out test pending head CT and labs. Patient does have a UTI which is likely the cause of his generalized weakness. He is given IV Rocephin. We will admit to hospitalist. IV labetalol given for a systematic hypertension. Admitted to medicine. Head CT 05/02/19 17:02 IMPRESSION: No acute intracranial abnormality. Mild cerebral atrophy and chronic small vessel ischemic changes in the white matter. D/ / Telly Palomo MD / Telly Palomo MD Interpreting Provider: Telly Palomo MD Chest X-Ray 05/02/19 17:25 IMPRESSION: No acute cardiopulmonary disease. Stable cardiomegaly. D/ / Malik Rossi MD / Malik Rossi MD Interpreting Provider: Mlaik Rossi MD
[2019-05-02] MEDS ORDERED: Naloxone 0.4 MG/ML INJ IVP PRN (21:52)
[2019-05-02] MEDS ORDERED: Dextrose Gel 15 GM/37.5 ML TUBE PO PRN ×2 (21:52)
[2019-05-02] MEDS ORDERED: *HR* Dextrose 50 % in Water (Syg) 50 ML SYRINGE IVP PRN (21:52)
[2019-05-02] MEDS ORDERED: D5% in Water 1,000 ML IVC PRN (21:52)
[2019-05-02] MEDS ORDERED: *HR* Metoprolol 5 MG/5 ML VIAL IVP ONE (22:07)
--- NOTE | 2019-05-02 22:13 | Internal Med History&Physical ---
<Thalia Gimenez Crow - Last Filed: 05/03/19 00:50> Date of Encounter: 05/03/19 Time of Encounter: 20:30 Internal Medicine - H&P: HPI Chief complaint: weakness Admitted From: Home History of present illness: Mr. Ibrahim is a 88 year old male with PMH of BPH, and cryptogenic stroke presents with c/o weakness. Patient states earlier today he was sitting in his kitchen with and he attempted to get up but could not. He states he felt extremely weak, dizzy and did not feel well. Patient admitted to recent placement of a hernandez last week due to urinary retention by the urologist here at [facility]. He states he took his prostate pill this morning and since then he has felt weak. Patient denies chest pain, headache, diaphoresis, nausea, vomiting, diarrhea, gross hematuria, dysuria, or fevers. He states he and his decided to call EMS since he thomas not get up, walk while at home. On arrival to the ED U/A was positive for blood, nitrites, leuk esterase, squamous cells,and bacteria. Patient has been admitted for complicated UTI in the setting of weakness and indwelling hernandez. Past Med Surg Social Fam HX - Past Medical History Medical history: arthritis, COPD, coronary artery disease, diabetes, GERD, GI bleed, hyperlipidemia, hypertension, kidney stones, myocardial infarction, renal disease, other Additional medical history: former smoker, quit in 1959. Psychiatric history: no psych history - Past Surgical History Surgical History: coronary bypass (CABG) - Social History Smoking Status: Former smoker Smokeless Tobacco Status: No Alcohol use: none Drug use: none - Family History Brother Age: 91 Living Status: Hx Family Genitourinary Disorders: Yes Mother Age: 88 Living Status: Hx Family Cardiac Disorders: Yes Internal Medicine - H&P: Meds glipiZIDE [Glipizide] 5 mg PO DAILY 12/06/15 [History] Aspirin [Lo-Dose Aspirin EC] 81 mg PO DAILY 01/10/17 [History] Polyvinyl Alcohol/Povidone/Pf [Refresh Classic Eye Drops] 1 drop BOTH EYES QID 01/10/17 [History] Atorvastatin [Lipitor] 40 mg PO HS #30 tablet 01/12/17 [Rx] Clopidogrel [Plavix] 75 mg PO DAILY #30 tablet 01/12/17 [Rx] amLODIPine [Norvasc] 10 mg PO DAILY #60 tablet 01/12/17 [Rx] hydrALAZINE [HydrALAZINE] 25 mg PO Q8HR #90 tablet 01/12/17 [Rx] Doxycycline 100 mg PO BID #14 capsule 04/19/19 [Rx] Allergy/AdvReac Type Severity Reaction Status Date / Time No Known Allergies Allergy Verified 05/02/19 16:01 All Systems PM: A 10-system review of systems was performed and is negative for pertinent findings except as documented above in the HPI. Review of systems: Constitutional: Denies Fever, Chills, Headache, admits Dizziness Respiratory: Denies Shortness of breath, Chronic cough, hemoptysis, Dyspnea at rest, or activity Cardiovascular: Denies Chest pain, Syncope, Peripheral edema , palpitations Gastrointestinal: Denies hematochezia, Abdominal pain, nausea, vomiting Genitourinary: Denies Painful urination, hematuria, admits urinary retention Endocrine: denies unintentional Significant weight changes Skin: Denies rashes, or unexplained bruising - Constitutional Vitals: Temp Pulse Resp BP Pulse Ox 97.8 F 87 15 197/89 95 05/02/19 19:52 05/02/19 19:52 05/02/19 19:52 05/02/19 19:52 05/02/19 19:52 Exam: Gen: alert/orientedx3, no acute distress. Head: atraumatic, normocephalic. ENT: no oropharyngeal erythema, mucous membranes moist, laceration over left eye containing 5 stitches. Neck: No thyromegaly appreciated. Neck supple no cervical lymphadenopathy. Resp: CTAB, no wheezing, rhonchi, or rhales. CV: RRR, Normal S1 and S2. No murmur, gallops, or rubs. GI/Abdominal exam: bowel sounds throughout, soft, suprapubic tenderness, no murphys sign, no rebound tenderness, rigidity or guarding, non-distended; no hepatosplenomegaly, no peritoneal signs. Hernandez in place. Skin: intact; no rashes, lesions, or bruising. Ext: No cyanosis or edema. pulses +2/4 bilaterally UE and LE. strength 5/5 bilaterally LE and UE. Neuro: no focal deficits, cooperative with exam. Internal Med - H&P Results - Labs CBC & Chem 7: 05/02/19 16:27 05/02/19 16:27 Labs: Short CBC 05/02/19 Range/Units 16:27 WBC 10.9 (4.3-11.1) K/mcL Hgb 13.5 (12.9-16.9) g/dL Hct 42.6 (37.5-50.1) % Plt Count 302 (140-400) K/mcL Neutrophils # 9.2 H (1.6-8.9) K/mcL BMP 05/02/19 16:27 Sodium 137 Potassium 3.5 Chloride 99 Carbon Dioxide 27 BUN 16 Creatinine 1.27 Glucose 125 H Calcium 8.8 Cardiac Enzymes 05/02/19 05/02/19 Range/Units 16:27 19:51 Troponin I 0.03 0.04 H* (< 0.04) ng/mL Liver Function 05/02/19 Range/Units 16:27 Total Bilirubin 0.6 (0.3-1.0) mg/dL AST 13 (13-39) Units/L ALT 8 (7-52) Units/L Alkaline Phosphatase 164 H (34-104) Units/L Albumin 3.3 L (3.5-5.7) g/dL Urine 05/02/19 Range/Units 17:06 Urine Color Dark Yellow (Yellow) Urine Clarity Turbid A (Clear) Urine pH 6.0 (5.0-8.0) pH Units Ur Specific [place] 1.022 (1.010-1.025) Urine Protein >=300 H (Neg-Trace) mg/dL Urine Glucose (UA) Normal (Normal) mg/dL - Impressions ITS Impressions Head CT 05/02/19 17:02 IMPRESSION: No acute intracranial abnormality. Mild cerebral atrophy and chronic small vessel ischemic changes in the white matter. D/ / Telly Palomo MD / Telly Palomo MD Interpreting Provider: Telly Palomo MD Chest X-Ray 05/02/19 17:25 IMPRESSION: No acute cardiopulmonary disease. Stable cardiomegaly. D/ / Malik Rossi MD / Malik Rossi MD Interpreting Provider: Malik Rossi MD - Assessment and Plan (1) Complicated UTI (urinary tract infection) Current Visit: Yes Status: Acute Assessment and plan: Patient is an 88-year-old male with history of BPH, DM 2 who presents with complaint of weakness. On arrival U/A showed many squamous cells, blood, nitrite, leukocyte esterase, bacteria. Patient has a Hernandez that was recently placed by urology due to urinary retention. Patient admits to weakness,and falls recently. This is consistent with complicated UTI. Plan; - Ceftriaxone 1 g IV once daily - Monitor Hernandez output for signs of hematuria - Monitor for signs of decompensation/pyelonephritis, fevers, delirium - Obtain CBC, CMP in am. (2) Generalized weakness Current Visit: Yes Status: Acute Assessment and plan: Patient is an 88-year-old male with history of CVA, MD, COPD who presents today with complaints of weakness in the setting of complicated UTI. Patient admits to recent falls and admits to his legs giving out. Etiologies include current diagnosis of acute complicated UTI, peripheral neuropathy, DM 2, muscular atrophy. Plan; - We will consult PT/OT for evaluation. - Place on fall precautions - Continue to treat current complicated UTI. (3) Diabetes mellitus Current Visit: Yes Status: Chronic Assessment and plan: Patient is a 88-year-old male with type 2 diabetes. Currently controlled on metformin diet and exercise. Plan; - We will monitor blood glucose with Accu-Cheks before and after meals and at bedtime. - Sliding-scale insulin before meals and at bedtime. - Basal low-dose insulin at bedtime. Qualifiers: Diabetes mellitus type: type 2 Diabetes mellitus terminal worker insulin use: without terminal worker use Diabetes mellitus complication status: without complication Qualified Code(s): E11.9 - Type 2 diabetes mellitus without complications (4) Essential hypertension Current Visit: Yes Status: Chronic Assessment and plan: Patient is a 8-year-old male with history of hypertension, MD, CAD, CVA. On arrival patient had elevated blood pressures of 180/93, 198/88, 213/96 patient was given labetalol in the ED. His blood pressure responded appropriately he has remained hemodynamically stable, and alert and oriented. EKG completed showed first-degree heart block with right bundle branch block with no clinically significant ST elevation. Plan: - Troponin's have been trended currently 0.03, 0.04, Third troponin pending. - consider adding Lisinopril to patients antihypertensive regimen to maintain BP control. - Time Spent With Patient Total time spent is greater than 50% in coordination of care (as documented) at patient's floor/unit and/or counseling patient: <Linda Castano - Last Filed: 05/03/19 06:40> Date of Encounter: 05/03/19 Internal Medicine - H&P: HPI History of present illness: Mr. Ibrahim is a 88 year old male All Systems PM: A 10-system review of systems was performed and is negative for pertinent findings except as documented above in the HPI. - Constitutional Vitals: Temp Pulse Resp BP Pulse Ox 97.9 F 83 16 168/76 95 05/03/19 03:26 05/03/19 03:26 05/03/19 03:26 05/03/19 03:26 05/03/19 03:26 Internal Med - H&P Results - Labs CBC & Chem 7: 05/03/19 01:35 05/03/19 01:35 Labs: Short CBC 05/02/19 05/03/19 Range/Units 16:27 01:35 WBC 10.9 10.0 (4.3-11.1) K/mcL Hgb 13.5 12.1 L (12.9-16.9) g/dL Hct 42.6 37.8 (37.5-50.1) % Plt Count 302 313 (140-400) K/mcL Neutrophils # 9.2 H 7.4 (1.6-8.9) K/mcL BMP 05/02/19 05/03/19 16:27 01:35 Sodium 137 138 Potassium 3.5 3.5 Chloride 99 102 Carbon Dioxide 27 24 BUN 16 16 Creatinine 1.27 1.22 Glucose 125 H 75 Calcium 8.8 8.3 L Cardiac Enzymes 05/02/19 05/02/19 05/03/19 Range/Units 16:27 19:51 01:35 Troponin I 0.03 0.04 H* 0.04 H* (< 0.04) ng/mL Liver Function 05/02/19 05/03/19 Range/Units 16:27 01:35 Total Bilirubin 0.6 0.5 (0.3-1.0) mg/dL AST 13 11 L (13-39) Units/L ALT 8 7 (7-52) Units/L Alkaline Phosphatase 164 H 142 H (34-104) Units/L Albumin 3.3 L 3.0 L (3.5-5.7) g/dL Urine 05/02/19 Range/Units 17:06 Urine Color Dark Yellow (Yellow) Urine Clarity Turbid A (Clear) Urine pH 6.0 (5.0-8.0) pH Units Ur Specific [place] 1.022 (1.010-1.025) Urine Protein >=300 H (Neg-Trace) mg/dL Urine Glucose (UA) Normal (Normal) mg/dL - Impressions ITS Impressions Head CT 05/02/19 17:02 IMPRESSION: No acute intracranial abnormality. Mild cerebral atrophy and chronic small vessel ischemic changes in the white matter. D/ / Telly Palomo MD / Telly Palomo MD Interpreting Provider: Telly Palomo MD Chest X-Ray 05/02/19 17:25 IMPRESSION: No acute cardiopulmonary disease. Stable cardiomegaly. D/ / Malik Rossi MD / Malik Rossi MD Interpreting Provider: Malik Rossi MD - Time Spent With Patient Total time spent is greater than 36 minutes 50% in coordination of care (as documented) at patient's floor/unit and/or counseling patient: Greater than 35 minutes - Attending Attestation - Attending Attestation I saw evaluated and examined this patient and reviewed objective data including labs and my medical decision-making was reviewed with the Resident Physician, Myla Jones. I agree with the documented findings, disposition and treatment plan as described except to any changes set forth below. We independently had [id number] contact with the patient. Patient is a 88-year-old male with acute urinary retention and had a Hernandez catheter placed this week with a follow-up urology appointment on Sunday. Patient has been experiencing further weakness and has recently started on tamsulosin for urinary retention, and experiencing lower abdominal pain. Admitted for complicated UTI with IV antibiotics.
[2019-05-02 23:12] LABS: Estimated Average Glucose 134 mg/dl
[2019-05-03 02:11] LABS: Basophils # 0.1 K/mcL (0.0-0.2); Basophils % 0.5 %; Eosinophils # 0.1 K/mcL (0.0-0.6); Eosinophils % 1.1 %; Hematocrit 37.8 % (37.5-50.1); Hemoglobin 12.1 g/dL (12.9-16.9); Immature Granulocytes % 0.4 % (0-4); Lymphocytes # 1.7 K/mcL (0.6-4.6); Lymphocytes % 17.3 %; Mean Corpuscular Hemoglobin 26.8 pg (28.0-33.3); Mean Corpuscular Volume 83.8 fL (83.0-100.0); Mean Platelet Volume 11.1 fL (9.4-12.4); Monocytes # 0.7 K/mcL (0.0-1.3); Monocytes % 6.5 %; Neutrophils # 7.4 K/mcL (1.6-8.9); Platelet Count 313 K/mcL (140-400); Red Blood Count 4.51 M/mcL (4.19-5.50); Red Cell Distribution Width 17.5 % (11.5-14.5); Segmented Neutrophils % 74.2 %
[2019-05-03 02:31] LABS: Alanine Aminotransferase 7 Units/L (7-52); Albumin/Globulin Ratio 1.1 (1.1-2.2); Alkaline Phosphatase 142 Units/L (34-104); Aspartate Amino Transferase 11 Units/L (13-39); BUN/Creatinine Ratio 13 (6-26); Bilirubin,Total 0.5 mg/dL (0.3-1.0); Blood Urea Nitrogen 16 mg/dL (8-23); Calcium 8.3 mg/dL (8.6-10.3); Carbon Dioxide 24 mEq/L (23-29); Chloride 102 mEq/L (98-107); Chol/HDL Ratio 2.7 (0-4.9); Cholesterol 88 mg/dL (< 200); Globulin 2.8 g/dL (2.4-3.5); Glucose 75 mg/dL (70-105); HDL Cholesterol 33 mg/dL (40-59); LDL Cholesterol,Calculated 40 mg/dL (0-99); Osmolality,Calculated 286 (280-300); Potassium 3.5 mEq/L (3.5-5.1); Sodium 138 mEq/L (136-145); Total Protein 5.8 g/dL (6.4-8.9); Triglycerides 77 mg/dL (< 150); eGFR For African Americans > 60 (> 60); eGFR For Non-African Americans 56 (> 60)
[2019-05-03] MEDS: cefTRIAXone 1,000 MG in Water for inj. (sterile) 10 ML IVP SCH (08:23)
[2019-05-03] MEDS: Insulin LISPRO 300 UNITS/3 ML VIAL SQ SCH ×3 (08:29→17:31)
--- NOTE | 2019-05-03 10:10 | Internal Med Progress Note ---
Hospitalist Progress Note - Encounter Date of Encounter: 05/03/19 Time of Encounter: 10:07 - Subjective Interval History: Mr. Ibrahim is a 88 year old male with PMH of BPH, and cryptogenic stroke presents with c/o weakness. Patient states earlier today he was sitting in his kitchen with and he attempted to get up but could not. He states he felt extremely weak, dizzy and did not feel well. Patient admitted to recent placement of a hernandez last week due to urinary retention by the urologist here at [facility]. He states he took his prostate pill this morning and since then he has felt weak. Patient denies chest pain, headache, diaphoresis, nausea, vomiting, diarrhea, gross hematuria, dysuria, or fevers. He states he and his decided to call EMS since he thomas not get up, walk while at home. On arrival to the ED U/A was positive for blood, nitrites, leuk esterase, squamous cells,and bacteria. Patient has been admitted for complicated UTI in the setting of weakness and indwelling hernandez. Pt seen and examined in the room. He has no compliants currently. - Exam Vitals: Temp Pulse Resp BP Pulse Ox 98.2 F 85 16 191/80 96 05/03/19 06:39 05/03/19 06:39 05/03/19 06:39 05/03/19 06:39 05/03/19 06:39 Exam: Gen: alert/orientedx3, no acute distress. Head: atraumatic, normocephalic. ENT: no oropharyngeal erythema, mucous membranes moist, laceration over left eye containing 5 stitches. Neck: No thyromegaly appreciated. Neck supple no cervical lymphadenopathy. Resp: CTAB, no wheezing, rhonchi, or rhales. CV: RRR, Normal S1 and S2. No murmur, gallops, or rubs. GI/Abdominal exam: bowel sounds throughout, soft, suprapubic tenderness, no murphys sign, no rebound tenderness, rigidity or guarding, non-distended; no hepatosplenomegaly, no peritoneal signs. Hernandez in place. Skin: intact; no rashes, lesions, or bruising. Ext: No cyanosis or edema. pulses +2/4 bilaterally UE and LE. strength 5/5 bilaterally LE and UE. Neuro: no focal deficits, cooperative with exam. - Assessment and Plan (1) Generalized weakness Current Visit: Yes Status: Acute Assessment and Plan: No focal deficit indicating CVA. CT head unremarkable. Passed swallow evaluation . UTI on the lab. PT/OT. (2) Complicated UTI (urinary tract infection) Current Visit: Yes Status: Acute Assessment and Plan: Pending urine cx, continue rocephin. (3) CAD (coronary artery disease) Current Visit: No Status: Chronic Assessment and Plan: trop 0.03, 0.04, 0.04, and 0.03. No chest pain, no ecg changes. (4) Essential hypertension Current Visit: No Status: Chronic Assessment and Plan: Continue monitoring BP, resume home meds. (5) DVT prophylaxis Current Visit: Yes Status: Acute Assessment and Plan: Heparin sq. - Time Spent with Patient Total time spent is greater than 50% in coordination of care (as documented) at patient's floor/unit and/or counseling patient: Greater than 35 minutes Plan of Care Discussed with: patient Internal Medicine: Result - Labs CBC & Chem 7: 05/03/19 01:35 05/03/19 01:35 Labs: Short CBC 05/02/19 05/03/19 Range/Units 16:27 01:35 WBC 10.9 10.0 (4.3-11.1) K/mcL Hgb 13.5 12.1 L (12.9-16.9) g/dL Hct 42.6 37.8 (37.5-50.1) % Plt Count 302 313 (140-400) K/mcL Neutrophils # 9.2 H 7.4 (1.6-8.9) K/mcL BMP 05/02/19 05/03/19 16:27 01:35 Sodium 137 138 Potassium 3.5 3.5 Chloride 99 102 Carbon Dioxide 27 24 BUN 16 16 Creatinine 1.27 1.22 Glucose 125 H 75 Calcium 8.8 8.3 L Cardiac Enzymes 05/02/19 05/02/19 05/03/19 Range/Units 16:27 19:51 01:35 Troponin I 0.03 0.04 H* 0.04 H* (< 0.04) ng/mL 05/03/19 Range/Units 07:55 Troponin I 0.03 (< 0.04) ng/mL Liver Function 05/02/19 05/03/19 Range/Units 16:27 01:35 Total Bilirubin 0.6 0.5 (0.3-1.0) mg/dL AST 13 11 L (13-39) Units/L ALT 8 7 (7-52) Units/L Alkaline Phosphatase 164 H 142 H (34-104) Units/L Albumin 3.3 L 3.0 L (3.5-5.7) g/dL Urine 05/02/19 Range/Units 17:06 Urine Color Dark Yellow (Yellow) Urine Clarity Turbid A (Clear) Urine pH 6.0 (5.0-8.0) pH Units Ur Specific [place] 1.022 (1.010-1.025) Urine Protein >=300 H (Neg-Trace) mg/dL Urine Glucose (UA) Normal (Normal) mg/dL - Impressions Impressions Head CT 05/02/19 17:02 IMPRESSION: No acute intracranial abnormality. Mild cerebral atrophy and chronic small vessel ischemic changes in the white matter. D/ / Telly Palomo MD / Telly Palomo MD Interpreting Provider: Telly Palomo MD Chest X-Ray 05/02/19 17:25 IMPRESSION: No acute cardiopulmonary disease. Stable cardiomegaly. D/ / Malik Rossi MD / Malik Rossi MD Interpreting Provider: Malik Rossi MD Consult Discharge Plan - Plan (3) CAD (coronary artery disease) Qualifiers: Coronary Disease-Associated Artery/Lesion type: bypass graft [place] vs. transplanted heart: [place] heart Associated angina: without angina Qualified Code(s): I25.810 - Atherosclerosis of coronary artery bypass graft(s) without angina pectoris
--- NOTE | 2019-05-03 15:08 | Electrocardiograph Report ---
[place] [id number] Test Date: 2019-05-02 Pat Name: Isabel Ibrahim Department: EXAM2 Room: 3B21 Gender: M Bank Messenger: : [id number] Requested By: Haroon Carmen Order Number: [id number] Reading MD: Umu Kelly Measurements Intervals [place] Rate: 109 P: -87 ME: 169 QRS: 90 QRSD: 128 T: 49 QT: 419 QTc: 565 Interpretive Statements Sinus or ectopic atrial tachycardia RBBB and LPFB Electronically Signed On 05-03-2019 15:07:01 EDT by Umu Kelly
--- NOTE | 2019-05-03 15:17 | Electrocardiograph Report ---
[place] [id number] Test Date: 2019-05-02 Pat Name: Isabel Ibrahim Department: 113 Room: 3B21 Gender: Video Photographer: : 1930 Requested By: [id number] Order Number: [id number] Reading MD: Umu Kelly Measurements Intervals [place] Rate: 85 P: 56 FL: 259 QRS: 60 QRSD: 137 T: 42 QT: 443 QTc: 485 Interpretive Statements SINUS RHYTHM WITH FIRST DEGREE AV BLOCK RIGHT BUNDLE BRANCH BLOCK [120+ ms QRS DURATION, UPRIGHT V1, 40+ ms S IN I/aVL/V4/V5/V6] Electronically Signed On 05-03-2019 15:16:00 EDT by mUu Kelly
[2019-05-03] MEDS: *HR* Heparin 5,000 UNIT/ML VIAL SQ SCH (17:26)
[2019-05-03] MEDS: amLODIPine 5 MG TABLET PO SCH (17:26)
[2019-05-03] MEDS ORDERED: Insulin DETEMIR 100 UNIT/ML X5UNITS SQ SCH (21:00)
[2019-05-04 00:53] LABS: Basophils # 0.1 K/mcL (0.0-0.2); Basophils % 0.7 %; Eosinophils # 0.2 K/mcL (0.0-0.6); Eosinophils % 2.8 %; Hematocrit 39.3 % (37.5-50.1); Hemoglobin 12.2 g/dL (12.9-16.9); Immature Granulocytes % 0.6 % (0-4); Lymphocytes # 2.1 K/mcL (0.6-4.6); Lymphocytes % 24.3 %; Mean Corpuscular Hemoglobin 26.2 pg (28.0-33.3); Mean Corpuscular Volume 84.5 fL (83.0-100.0); Mean Platelet Volume 10.3 fL (9.4-12.4); Monocytes # 0.6 K/mcL (0.0-1.3); Monocytes % 7.3 %; Neutrophils # 5.5 K/mcL (1.6-8.9); Platelet Count 301 K/mcL (140-400); Red Blood Count 4.65 M/mcL (4.19-5.50); Red Cell Distribution Width 17.6 % (11.5-14.5); Segmented Neutrophils % 64.3 %; White Blood Count 8.5 K/mcL (4.3-11.1)
[2019-05-04 01:10] LABS: BUN/Creatinine Ratio 13 (6-26); Blood Urea Nitrogen 17 mg/dL (8-23); Carbon Dioxide 27 mEq/L (23-29); Chloride 101 mEq/L (98-107); Potassium 3.7 mEq/L (3.5-5.1); Sodium 136 mEq/L (136-145); eGFR For African Americans > 60 (> 60)
[2019-05-04 01:11] LABS: Calcium 8.3 mg/dL (8.6-10.3); Glucose 149 mg/dL (70-105); Osmolality,Calculated 286 (280-300); eGFR For Non-African Americans 54 (> 60)
[2019-05-04] MEDS: *HR* Heparin 5,000 UNIT/ML VIAL SQ SCH (06:16)
[2019-05-04 07:52] VITALS: BP 167/72
[2019-05-04] MEDS: Insulin LISPRO 300 UNITS/3 ML VIAL SQ SCH (08:57)
[2019-05-04] MEDS: cefTRIAXone 1,000 MG in Water for inj. (sterile) 10 ML IVP SCH (08:59)
[2019-05-04] MEDS: amLODIPine 5 MG TABLET PO SCH (08:59)
[2019-05-04] MEDS ORDERED: Aspirin Enteric Coated 81 MG Tablet PO SCH (09:00)
[2019-05-04] MEDS ORDERED: levoFLOXacin 500 MG TABLET PO SCH (09:30)
--- NOTE | 2019-05-04 09:49 | Discharge Summary ---
- NOTES TO OUTPATIENT PROVIDER Notes to Outpatient Provider: f/u with PCP within a week. Date of Encounter: 05/04/19 Time of Encounter: 09:47 - Discharge Diagnosis (1) Generalized weakness Priority: Primary Status: Acute (2) Complicated UTI (urinary tract infection) Priority: Primary Status: Acute (3) CAD (coronary artery disease) Priority: Secondary Status: Chronic Qualifiers: Coronary Disease-Associated Artery/Lesion type: bypass graft [place] vs. transplanted heart: [place] heart Associated angina: without angina Qualified Code(s): I25.810 - Atherosclerosis of coronary artery bypass graft(s) without angina pectoris (4) Essential hypertension Priority: Secondary Status: Chronic (5) DVT prophylaxis Priority: Primary Status: Acute Hospital course: Mr. Ibrahim is a 88 year old male with PMH of BPH, and cryptogenic stroke presents with c/o weakness. Patient states earlier today he was sitting in his kitchen with and he attempted to get up but could not. He states he felt extremely weak, dizzy and did not feel well. Patient admitted to recent placement of a hernandez last week due to urinary retention by the urologist here at [facility]. He states he took his prostate pill this morning and since then he has felt weak. Patient denies chest pain, headache, diaphoresis, nausea, vomiting, diarrhea, gross hematuria, dysuria, or fevers. He states he and his decided to call EMS since he thomas not get up, walk while at home. On arrival to the ED U/A was positive for blood, nitrites, leuk esterase, squamous cells,and bacteria. Patient has been admitted for complicated UTI in the setting of weakness and indwelling Hernandez. Rocephin IV was started. Urine cx obtained. His BP was signficantly elevated and he has not been filled his BP meds for months, he was started back on Lisinopril and Norvasc. Urien cx grew Citrobacter ferundii, sensitive to Levaquin, abx changed to oral Levaquin. With 3 days of treatment, His strength has significantly improved as well as his mental status. BP was fairly controlled. He is discharged home today, 14 days of Levaquin prescription provided as well as Lisinopril and Norvasc, he will f/u with PCP and Urology as scheduled. Discharge discussed with: patient Time spent discussing smoking cessation with patient: more than 10 minutes - Time Spent with Patient Total time spent providing and/or coordinating discharge services: Time spent: Greater than 30 minutes - Discharge Medications Prescriptions: New levoFLOXacin [Levaquin] 500 mg PO DAILY #14 tablet amLODIPine [Norvasc] 5 mg PO DAILY #30 tablet Lisinopril [Zestril] 10 mg PO DAILY #30 tablet Continued glipiZIDE [Glipizide] 5 mg PO DAILY Aspirin [Lo-Dose Aspirin EC] 81 mg PO DAILY Atorvastatin [Lipitor] 40 mg PO HS #30 tablet Clopidogrel [Plavix] 75 mg PO DAILY #30 tablet Metformin HCl [Metformin HCl ER] 1,000 mg PO DAILY Omeprazole [PriLOSEC] 20 mg PO DAILY Tamsulosin HCl [Flomax] 0.4 mg PO DAILY Home Medications: glipiZIDE [Glipizide] 5 mg PO DAILY 12/06/15 [History] Aspirin [Lo-Dose Aspirin EC] 81 mg PO DAILY 01/10/17 [History] Atorvastatin [Lipitor] 40 mg PO HS #30 tablet 01/12/17 [Rx] Clopidogrel [Plavix] 75 mg PO DAILY #30 tablet 01/12/17 [Rx] Metformin HCl [Metformin HCl ER] 1,000 mg PO DAILY 05/03/19 [History] Omeprazole [PriLOSEC] 20 mg PO DAILY 05/03/19 [History] Tamsulosin HCl [Flomax] 0.4 mg PO DAILY 05/03/19 [History] Lisinopril [Zestril] 10 mg PO DAILY #30 tablet 05/04/19 [Rx] amLODIPine [Norvasc] 5 mg PO DAILY #30 tablet 05/04/19 [Rx] levoFLOXacin [Levaquin] 500 mg PO DAILY #14 tablet 05/04/19 [Rx] Allergies/Adverse Reactions: Allergy/AdvReac Type Severity Reaction Status Date / Time No Known Allergies Allergy Verified 05/03/19 10:36 Date of admission: 05/02/19 18:30 [facility] care physician: [facility] Consults: 05/02/19 21:58 Consult to Physical Therapy [CONS] Routine Comment: Evaluate, develop and implement POC Reason for Consult: weakness Does patient have active BEDREST order?: No Is patient medically & hemodynamically stable?: Yes Patient assessed for mobility or mobilized this visit?: No 05/02/19 21:59 Consult to Occupational Therapy [CONS] Routine Comment: Evaluate, develop and implement POC Reason for Consult: weakness Does patient have active BEDREST order?: No Is patient medically & hemodynamically stable?: Yes Patient assessed for mobility or mobilized this visit?: No Anticipated date of discharge: 05/04/19 - Constitutional Vitals: Temp Pulse Resp BP Pulse Ox 97.8 F 80 16 167/72 97 05/04/19 07:51 05/04/19 07:51 05/04/19 07:51 05/04/19 07:51 05/04/19 07:51 General appearance: Present: A&O X 3 Exam: Gen: alert/orientedx3, no acute distress. Head: atraumatic, normocephalic. ENT: no oropharyngeal erythema, mucous membranes moist, laceration over left eye containing 5 stitches. Neck: No thyromegaly appreciated. Neck supple no cervical lymphadenopathy. Resp: CTAB, no wheezing, rhonchi, or rhales. CV: RRR, Normal S1 and S2. No murmur, gallops, or rubs. GI/Abdominal exam: bowel sounds throughout, soft, suprapubic tenderness, no murphys sign, no rebound tenderness, rigidity or guarding, non-distended; no hepatosplenomegaly, no peritoneal signs. Hernandez in place. Skin: intact; no rashes, lesions, or bruising. Ext: No cyanosis or edema. pulses +2/4 bilaterally UE and LE. strength 5/5 bilaterally LE and UE. Neuro: no focal deficits, cooperative with exam. - Patient Status Disposition: Home, Self-Care Condition: Good Functional capacity at discharge: independent ambulation Overall status at discharge: patient is progressing back to baseline - Discharge Instructions Follow Up With: [facility]Primary Care Provider[facility] - Forms: ED Satisfaction Letter - Diet and Activity Activity: increase activity as tolerated Diet: diabetic diet, low fat, low cholesterol, low salt diet
== END 2019-05-04 11:31 | disposition home or self-care (01) ==
LOC: EMEROOARM 15:52 → 3BNU 15:52
PROVIDERS: ADMIT Internal Medicine; ATTEND Internal Medicine